=== PATIENT | female | born 1945 | race Caucasian/White ===

== ENCOUNTER → 2016-12-15 | Outpatient (CLI) | payer MEDICARE, MEDICAID ==
[~2016-12-15] MED LIST: IBUP400 PO; METO25 PO; MORP1CAP62 PO; NITR.3 SL; PLAV75TA PO; SPIRCAP INH; ULTR50TA PO; ZANTTAB9 PO
[2016-12-15 08:10] LABS: ANION GAP 5 MEQ/L (5-15); AST (GOT) 10 U/L (15-37); BICARBONATE 28.2 MEQ/L (21.0-32.0); BLOOD UREA NITROGEN 15 MG/DL (7-18); CHLORIDE 108 MEQ/L (98-107); GLOMERULAR FILTRATION RATE 77 ML/MIN (>89); GLUCOSE,FASTING 90 MG/DL (74-99); SODIUM (NA) 141 MEQ/L (136-145)
[2016-12-15 08:11] LABS: ALT (GPT) 18 U/L (10-53)
[2016-12-15 08:13] LABS: ALKALINE PHOSPHATASE 87 U/L (45-117); HDL CHOLESTEROL 52.1 MG/DL (40.0-60.0); LDL CHOLESTEROL 133 MG/DL (0-99); TOTAL BILIRUBIN ADULT 0.4 MG/DL (0.2-1.0)
== END ==
LOC: CLAB 06:55
PROVIDERS: ATTEND Family Medicine
DX: I25.10 Atherosclerotic heart disease of native coronary artery without angina pectoris (principal); E78.5 Hyperlipidemia, unspecified; I11.9 Hypertensive heart disease without heart failure; I73.9 Peripheral vascular disease, unspecified
CPT/HCPCS: 36415; 80053; 80061

== ENCOUNTER 2017-02-08 15:06 | Emergency (ER) | payer MEDICARE, MEDICAID ==
[~2017-02-08] VITALS: Ht 157.5 cm; Wt 63.0 kg
[2017-02-08 16:39] VITALS: BP 117/95; PULSE 74; RESP 16; TEMP 97.5; O2SAT 94
[2017-02-08 17:28] VITALS: BP 177/90; PULSE 63; RESP 16; TEMP 98; O2SAT 97
--- NOTE | 2017-02-09 14:02 | EKG ---
Date Performed: 02/08/2017 Time Performed: 16:49:23 PTAGE: 71 years EKG: Sinus rhythm POSSIBLE LEFT ATRIAL ENLARGEMENT BORDERLINE ECG Compared to prior tracing no significant change PREVIOUS TRACING : 01/07/2015 06.00 DOCTOR: Verónica Burns Interpretating Date/Time 02/09/2017 13:56:58
== END 2017-02-08 20:22 | disposition left against medical advice (07) ==
LOC: PHED 15:06
DX: Z53.9 Procedure and treatment not carried out, unspecified reason (principal)
CPT/HCPCS: 93005; 99281

== ENCOUNTER 2017-02-22 19:49 | Emergency (ER) | payer MEDICARE, MEDICAID ==
[~2017-02-22] VITALS: Ht 157.5 cm; Wt 64.3 kg
[2017-02-22 19:57] VITALS: BP 180/84; PULSE 64; RESP 16; TEMP 97.6; O2SAT 97
[2017-02-22] MEDS ORDERED: PLAV75TA29 PO (20:12)
[2017-02-22] MEDS ORDERED: METO25TA3 PO (20:12)
[2017-02-22] MEDS ORDERED: LIPI80TA PO (20:12)
[2017-02-22] MEDS ORDERED: FOSA70TA PO (20:12)
[2017-02-22] MEDS ORDERED: TRAM50TA PO (20:12)
[2017-02-22] MEDS ORDERED: SPIRCAP INH (20:12)
[2017-02-22] MEDS ORDERED: NITR0.4S SL (20:12)
[2017-02-22] MEDS ORDERED: ZANT150T2 PO (20:12)
[2017-02-22] MEDS ORDERED: SODIUM CHLORIDE 0.9% FLUSH 10 ML FLUSH IV FLUSH PRN (20:15)
[2017-02-22] MEDS ORDERED: diphenhydrAMINE HCL 50 MG/ML VIAL IV PUSH ONE (20:15)
[2017-02-22] MEDS ORDERED: KETOROLAC TROMETHAMINE 30 MG/ML (IVP) VIAL IV PUSH ONE (20:15)
[2017-02-22] MEDS ORDERED: methylPREDNISolone SOD SUCC 125 MG/2 ML VIAL IV PUSH ONE (20:15)
[2017-02-22 20:27] VITALS: O2SAT 97
[2017-02-22 20:43] LABS: AUTOMATED NEUTROPHIL # 4.1 TH/MM3 (1.8-7.7); BASOPHIL # 0.1 TH/MM3 (0-0.2); EOSINOPHIL # 0.2 TH/MM3 (0-0.4); EOSINOPHIL % 2.6 % (0.0-4.0); HEMATOCRIT 47.8 % (35.0-46.0); HEMO FLAGS DIFF FINAL; LYMPH % 39.6 % (9.0-44.0); LYMPHOCYTE # 3.1 TH/MM3 (1.0-4.8); MEAN CELL VOLUME 87.8 FL (80.0-100.0); MONO % 5.6 % (0.0-8.0); NEUT % 51.2 % (16.0-70.0); PLATELET COUNT 256 TH/MM3 (150-450); RED BLOOD COUNT 5.45 MIL/MM3 (4.00-5.30); RED CELL DISTRIBUTION WIDTH 13.5 % (11.6-17.2); WHITE BLOOD COUNT 7.9 TH/MM3 (4.0-11.0)
[2017-02-22 20:51] LABS: CHLORIDE 106 MEQ/L (98-107); POTASSIUM 4.3 MEQ/L (3.5-5.1); SODIUM (NA) 139 MEQ/L (136-145)
[2017-02-22 20:55] LABS: ANION GAP 7 MEQ/L (5-15); BICARBONATE 26.4 MEQ/L (21.0-32.0); BLOOD UREA NITROGEN 13 MG/DL (7-18)
[2017-02-22 20:58] LABS: ALT (GPT) 16 U/L (10-53); AST (GOT) 13 U/L (15-37); GLOMERULAR FILTRATION RATE 89 ML/MIN (>89)
[2017-02-22 21:00] LABS: TOTAL BILIRUBIN ADULT 0.3 MG/DL (0.2-1.0)
[2017-02-22 21:01] LABS: ALKALINE PHOSPHATASE 90 U/L (45-117)
--- NOTE | 2017-02-22 21:01 | PD ---
HPI Chief Complaint: Allergic/Adverse Reaction Time Seen by Provider: 20:06 Travel History International Travel<30 days: No Contact w/Intl Traveler<30days: No Traveled to known affect area: No History of Present Illness HPI 71-year-old female who had the flu vaccine in her left deltoid yesterday afternoon, here for evaluation of pain, redness, and warmth to her left arm. Symptoms started yesterday night and continued throughout the day today. Pain is severe, constant, worse with movement and palpation. No tongue or lip swelling. No drooling or stridor. PFSH Past Medical History Hx Anticoagulant Therapy: Yes (PLAVIX) Arthritis: Yes (OSTEOPOROSIS) Asthma: Yes Autoimmune Disease: No Blood Disorders: No Anxiety: No Depression: No Heart Rhythm Problems: Yes Cancer: No Cardiac Catheterization: Yes Cardiovascular Problems: Yes High Cholesterol: Yes Chemotherapy: No Chest Pain: Yes Congestive Heart Failure: No COPD: Yes Cerebrovascular Accident: No Coronary Artery Disease: Yes ([place]) Diabetes: No Diminished Hearing: No Diverticulitis: Yes Endocrine: No Gastrointestinal Disorders: Yes GERD: Yes (HIATAL HERNIA) Genitourinary: No Headaches: Yes Hepatitis: No Hiatal Hernia: Yes Hypertension: Yes Immune Disorder: No Implanted Vascular Access Dvce: Yes Musculoskeletal: No Neurologic: Yes Psychiatric: No Reproductive: No Respiratory: Yes (EMPHYSEMA) Immunizations Current: No Migraines: Yes Myocardial Infarction: Yes (2004) Radiation Therapy: No Seizures: No Sleep Apnea: No Thyroid Disease: No Ulcer: Yes Tetanus Vaccination: < 5 Years Influenza Vaccination: Yes PNEUMOCCOCAL Vaccine (Year): 2 Menopausal: Yes Past Surgical History Abdominal Surgery: Yes AICD: No Appendectomy: No Arteriovenous Shunt: No Body Medical Devices: CARDIAC AND FEMORAL STENTS Cardiac Surgery: Yes (STENT 2004) Cholecystectomy: No Coronary Artery Bypass Graft: Yes Coronary Stent: Yes Ear Surgery: No Endocrine Surgery: No Eye Surgery: No Genitourinary Surgery: No Gynecologic Surgery: Yes Hysterectomy: Yes Insulin Pump: No Joint Replacement: No Neurologic Surgery: No Oral Surgery: Yes Pacemaker: No Thoracic Surgery: No Tonsillectomy: Yes Other Surgery: Yes (BILAT ILIAC PTCA/STENTS) Family History Family Myocardial Infarction: Yes Social History Alcohol Use: No Tobacco Use: Yes (<1/2 PPD) Substance Use: No Allergies-Medications (Allergen,Severity, Reaction): Coded Allergies: Sulfa (Sulfonamide Antibiotics) (Unverified Allergy, Severe, UNKNOWN; "ALMOST ", 02/22/17) A CHILD; PT STATE HER MOTHER TOLD HER SHE ALMOST AFTER RECEIVING SULFA DRUG acetaminophen (Unverified Adverse Reaction, Severe, Nausea/Vomiting, ) codeine (Unverified Adverse Reaction, Severe, Nausea/Vomiting, 02/22/17) oxycodone (Unverified Adverse Reaction, Severe, Nausea/Vomiting, 02/22/17) aspirin (Unverified Adverse Reaction, Intermediate, Ulcers, 02/22/17) GI BLEED Reported Meds & Prescriptions Reported Meds & Active Scripts Active Reported Tramadol (Tramadol HCl) 50 Mg Tab 50 Mg PO Q8H PRN Lipitor (Atorvastatin Calcium) 80 Mg Tab 80 Mg PO HS Zantac (Ranitidine HCl) 150 Mg Tab 150 Mg PO BID Spiriva Handihaler (Tiotropium Inh) 18 Mcg Cap 18 Mcg INH DAILY 1 capsule = 18 mcg Plavix (Clopidogrel Bisulfate) 75 Mg Tab 75 Mg PO DAILY Nitrostat SL (Nitroglycerin) 0.4 Mg Subl 0.4 Mg SL DIRECTED PRN 1 tablet under the tongue as needed for chest pain. Repeat every 5 minutes for a total of 3 DOSES or call 911 if NO relief. Metoprolol Tartrate 25 Mg Tab 25 Mg PO BID Review of Systems Except as stated in HPI: all other systems reviewed are Neg Physical Exam Narrative GENERAL: Well-developed, thin, comfortable, no apparent distress. SKIN: Focused skin assessment warm/dry. Left proximal arm with mild warmth and erythema with slightly raised skin/hive-like lesions. No red streaks. No fluctuance or induration. No crepitus. HEAD: Atraumatic. Normocephalic. EYES: Pupils equal and round. No scleral icterus. No injection or drainage. ENT: Mucous membranes pink and moist. No tongue or lip swelling. No drooling or stridor. NECK: Trachea midline. No JVD. No nuchal rigidity. CARDIOVASCULAR: Regular rate and rhythm. Bilateral distal radial pulses are brisk and equal. RESPIRATORY: No accessory muscle use. Clear to auscultation. Breath sounds equal bilaterally. GASTROINTESTINAL: Abdomen soft, non-tender, nondistended. MUSCULOSKELETAL: No obvious deformities. No clubbing. No cyanosis. No edema. NEUROLOGICAL: Awake and alert. No obvious cranial nerve deficits. Motor grossly within normal limits. Normal speech. PSYCHIATRIC: Appropriate mood and affect; insight and judgment normal. Data Data Last Documented VS Vital Signs Date Time Temp Pulse Resp B/P (MAP) Pulse Ox O2 Delivery O2 Flow Rate FiO2 02/22/17 20:27 97 Room Air 02/22/17 19:57 97.6 64 16 Orders Orders Complete Blood Count With Diff (02/22/17 20:10) Comprehensive Metabolic Panel (02/22/17 20:10) Iv Access Insert/Monitor (02/22/17 20:10) Ecg Monitoring (02/22/17 20:10) Oximetry (02/22/17 20:10) Sodium Chloride 0.9% Flush (Ns Flush) (02/22/17 20:15) Methylprednisolone So Succ Inj (Solumedr (02/22/17 20:15) Ketorolac Inj (Toradol Inj) (02/22/17 20:15) Diphenhydramine Inj (Benadryl Inj) (02/22/17 20:15) Labs Laboratory Tests Test 02/22/17 20:40 White Blood Count 7.9 TH/MM3 Red Blood Count 5.45 MIL/MM3 Hemoglobin 15.8 GM/DL Hematocrit 47.8 % Mean Corpuscular Volume 87.8 FL Mean Corpuscular Hemoglobin 29.0 PG Mean Corpuscular Hemoglobin Concent 33.0 % Red Cell Distribution Width 13.5 % Platelet Count 256 TH/MM3 Mean Platelet Volume 8.9 FL Neutrophils (%) (Auto) 51.2 % Lymphocytes (%) (Auto) 39.6 % Monocytes (%) (Auto) 5.6 % Eosinophils (%) (Auto) 2.6 % Basophils (%) (Auto) 1.0 % Neutrophils # (Auto) 4.1 TH/MM3 Lymphocytes # (Auto) 3.1 TH/MM3 Monocytes # (Auto) 0.4 TH/MM3 Eosinophils # (Auto) 0.2 TH/MM3 Basophils # (Auto) 0.1 TH/MM3 CBC Comment DIFF FINAL Differential Comment Blood Urea Nitrogen 13 MG/DL Creatinine 0.66 MG/DL Random Glucose 90 MG/DL Total Protein 7.2 GM/DL Albumin 3.5 GM/DL Calcium Level 9.3 MG/DL Alkaline Phosphatase 90 U/L Aspartate Amino Transf (AST/SGOT) 13 U/L Alanine Aminotransferase (ALT/SGPT) 16 U/L Total Bilirubin 0.3 MG/DL Sodium Level 139 MEQ/L Potassium Level 4.3 MEQ/L Chloride Level 106 MEQ/L Carbon Dioxide Level 26.4 MEQ/L Anion Gap 7 MEQ/L Estimat Glomerular Filtration Rate 89 ML/MIN MDM Medical Decision Making Medical Screen Exam Complete: Yes Emergency Medical Condition: Yes Medical Record Reviewed: Yes Differential Diagnosis Adverse medication reaction, allergic reaction, cellulitis Narrative Course Vital signs show heart rate 64, blood pressure 180/84, pulse ox 97% on room air , oral temp 97.6F. CBC shows WBC 7.9, hemoglobin 15.8, hematocrit 47.8, platelets 256. CMP is unremarkable. Patient was given a dose of IV Solu-Medrol, IV Benadryl, and IV Toradol, and on reassessment she is feeling significantly improved. The area of warmth and erythema to her left arm has significantly improved. I think this is an adverse reaction to the influenza vaccine. I do not believe that there is an infection such as cellulitis or an abscess. There is no fluctuance or induration. She does not have any signs or symptoms of an anaphylactic reaction. She is feeling much better and would like to be discharged home. I believe she is stable for discharge home with outpatient follow-up with her primary care physician this week. I'll give her a short course of prednisone to take once daily for the next 4 days. She was informed on when to return to the emergency department. She verbalizes understanding and agreement with plan. Diagnosis Primary Impression: Adverse reaction to influenza vaccine Qualified Codes: [id number] - Adverse effect of other viral vaccines, initial encounter Referrals: Primary Care Physician 3 days Additional Instructions: Follow-up with your primary care physician this week. Return to the emergency department for worsening symptoms or any other concerns. Scripts Prednisone (Prednisone) 50 Mg Tab 50 MG PO DAILY for 4 Days, #4 TAB 0 Refills Prov: Sumit Sen MD 02/22/17 Disposition: 01 DISCHARGE HOME Condition: Stable Sumit Sen MD Feb 22, 2017 21:01
[2017-02-22] MEDS ORDERED: PRED50 PO (21:22)
[2017-02-22 21:38] VITALS: BP 150/80
== END 2017-02-22 21:46 | disposition home or self-care (01) ==
LOC: PHED 19:49
DX: T50.B95A Adverse effect of other viral vaccines, initial encounter (principal); M81.0 Age-related osteoporosis without current pathological fracture; E78.00 Pure hypercholesterolemia, unspecified; J44.9 Chronic obstructive pulmonary disease, unspecified; I25.2 Old myocardial infarction; I25.10 Atherosclerotic heart disease of native coronary artery without angina pectoris; I10 Essential (primary) hypertension; Z95.5 Presence of coronary angioplasty implant and graft; Z95.1 Presence of aortocoronary bypass graft; F17.210 Nicotine dependence, cigarettes, uncomplicated
CPT/HCPCS: 80053; 85025; 96374; 96375; 99284; J1200; J1885; J2930

== ENCOUNTER → 2017-03-19 | Outpatient (CLI) | payer MEDICARE, MEDICAID ==
[~2017-03-19] MED LIST changes: -IBUP400 PO; +LIPI80TA PO; -METO25 PO; +METO25TA3 PO; -MORP1CAP62 PO; -NITR.3 SL; +NITR0.4S SL; -PLAV75TA PO; +PLAV75TA29 PO; +PRED50 PO; +TRAM50TA PO; -ULTR50TA PO; +ZANT150T2 PO; -ZANTTAB9 PO
[2017-03-19 06:54] LABS: AUTOMATED NEUTROPHIL # 3.3 TH/MM3 (1.8-7.7); BASOPHIL # 0.1 TH/MM3 (0-0.2); BASOPHIL % 1.2 % (0.0-2.0); EOSINOPHIL # 0.2 TH/MM3 (0-0.4); EOSINOPHIL % 2.2 % (0.0-4.0); HEMATOCRIT 46.3 % (35.0-46.0); HEMO FLAGS DIFF FINAL; LYMPH % 49.1 % (9.0-44.0); MEAN CELL VOLUME 88.3 FL (80.0-100.0); MEAN CORPUSCULAR HEMOGLOBIN 29.9 PG (27.0-34.0); MEAN CORPUSCULAR HGB CONC 33.8 % (32.0-36.0); MONO % 6.8 % (0.0-8.0); NEUT % 40.7 % (16.0-70.0); PLATELET COUNT 234 TH/MM3 (150-450); RED BLOOD COUNT 5.25 MIL/MM3 (4.00-5.30); WHITE BLOOD COUNT 8.2 TH/MM3 (4.0-11.0)
[2017-03-19 07:37] LABS: ANION GAP 5 MEQ/L (5-15); AST (GOT) 9 U/L (15-37); BICARBONATE 28.8 MEQ/L (21.0-32.0); BLOOD UREA NITROGEN 12 MG/DL (7-18); CHLORIDE 106 MEQ/L (98-107); GLOMERULAR FILTRATION RATE 77 ML/MIN (>89); GLUCOSE,FASTING 87 MG/DL (74-99); POTASSIUM 4.3 MEQ/L (3.5-5.1); SODIUM (NA) 140 MEQ/L (136-145)
[2017-03-19 07:38] LABS: ALT (GPT) 16 U/L (10-53)
[2017-03-19 07:41] LABS: ALKALINE PHOSPHATASE 86 U/L (45-117); HDL CHOLESTEROL 53.5 MG/DL (40.0-60.0); LDL CHOLESTEROL 159 MG/DL (0-99); TOTAL BILIRUBIN ADULT 0.3 MG/DL (0.2-1.0)
== END ==
LOC: CLAB 06:33
PROVIDERS: ATTEND Family Medicine
DX: J44.9 Chronic obstructive pulmonary disease, unspecified (principal); I25.10 Atherosclerotic heart disease of native coronary artery without angina pectoris; E78.5 Hyperlipidemia, unspecified; I11.9 Hypertensive heart disease without heart failure; I25.2 Old myocardial infarction; I73.9 Peripheral vascular disease, unspecified; Z11.59 Encounter for screening for other viral diseases; Z79.01 Long term (current) use of anticoagulants
CPT/HCPCS: 36415; 80053; 80061; 85025; 86803

== ENCOUNTER 2017-05-11 18:26 | Inpatient (IN) | payer MEDICARE, MEDICAID ==
[~2017-05-11] VITALS: Ht 160 cm; Wt 63.5 kg
[2017-05-11] MEDS ORDERED: SODIUM CHLORIDE 0.9% FLUSH 10 ML FLUSH IVF PRN (18:45)
[2017-05-11] MEDS ORDERED: NITROGLYCERIN 2% OINT 1 GM PACKET TOP ONE (18:45)
[2017-05-11] MEDS ORDERED: SODIUM CHLORID 0.9% 500 ML INJ 500 ML IV ONE (18:45)
[2017-05-11] MEDS ORDERED: CLOPIDOGREL 300 MG TAB PO ONE (18:45)
[2017-05-11] MEDS ORDERED: MORPHINE SULFATE 4 MG/ML INJ IV PUSH ONE (18:45)
[2017-05-11 18:48] VITALS: BP 129/82; PULSE 92; RESP 18; O2SAT 94; O2SAT 98
--- NOTE | 2017-05-11 18:50 | PD ---
HPI Chief Complaint: chest pain Time Seen by Provider: 18:43 Travel History International Travel<30 days: No Contact w/Intl Traveler<30days: No Traveled to known affect area: No History of Present Illness HPI 71-year-old female with history of cardiac issues presents the emergency department via EMS with sudden onset chest pain approximately 2 hours ago. Patient received a total of 3 nitroglycerin en route with mild improvement in her symptoms. Patient is allergic to aspirin., As well as sulfa , codeine, and oxycodone. Patient denies recent fever or chills. Chest pain came on suddenly without exertion. Pain is stated to be 7 out of 10. Patient has cardiac history including 2 stents placed in 2009. Patient also has peripheral vascular disease with femoropopliteal bypass done in 2007. Patient states the pain today radiates down the left arm. She also has associated chest pressure. Patient denies nausea or vomiting. PFSH Past Medical History Hx Anticoagulant Therapy: Yes (PLAVIX) Arthritis: Yes (OSTEOPOROSIS) Asthma: Yes Autoimmune Disease: No Blood Disorders: No Anxiety: No Depression: No Heart Rhythm Problems: Yes Cancer: No Cardiac Catheterization: Yes Cardiovascular Problems: Yes High Cholesterol: Yes Chemotherapy: No Chest Pain: Yes Congestive Heart Failure: No COPD: Yes Cerebrovascular Accident: No Coronary Artery Disease: Yes ([place]) Diabetes: No Diminished Hearing: No Diverticulitis: Yes Endocrine: No Gastrointestinal Disorders: Yes GERD: Yes (HIATAL HERNIA) Genitourinary: No Headaches: Yes Hepatitis: No Hiatal Hernia: Yes Hypertension: Yes Immune Disorder: No Implanted Vascular Access Dvce: Yes Musculoskeletal: No Neurologic: Yes Psychiatric: No Reproductive: No Respiratory: Yes (EMPHYSEMA) Immunizations Current: No Migraines: Yes Myocardial Infarction: Yes (2004) Radiation Therapy: No Seizures: No Sleep Apnea: No Thyroid Disease: No Ulcer: Yes PNEUMOCCOCAL Vaccine (Year): 2 Menopausal: Yes Past Surgical History Abdominal Surgery: Yes AICD: No Appendectomy: No Arteriovenous Shunt: No Body Medical Devices: CARDIAC AND FEMORAL STENTS Cardiac Surgery: Yes (STENT 2004) Cholecystectomy: No Coronary Artery Bypass Graft: Yes Coronary Stent: Yes Ear Surgery: No Endocrine Surgery: No Eye Surgery: No Genitourinary Surgery: No Gynecologic Surgery: Yes Hysterectomy: Yes Insulin Pump: No Joint Replacement: No Neurologic Surgery: No Oral Surgery: Yes Pacemaker: No Thoracic Surgery: No Tonsillectomy: Yes Other Surgery: Yes (BILAT ILIAC PTCA/STENTS) Social History Alcohol Use: No Tobacco Use: Yes (<1/2 PPD) Substance Use: No Allergies-Medications (Allergen,Severity, Reaction): Coded Allergies: Sulfa (Sulfonamide Antibiotics) (Unverified Allergy, Severe, UNKNOWN; "ALMOST ", 05/11/17) A CHILD; PT STATE HER MOTHER TOLD HER SHE ALMOST AFTER RECEIVING SULFA DRUG acetaminophen (Unverified Adverse Reaction, Severe, Nausea/Vomiting, 05/11) codeine (Unverified Adverse Reaction, Severe, Nausea/Vomiting, 05/11/17) oxycodone (Unverified Adverse Reaction, Severe, Nausea/Vomiting, 05/11/17) aspirin (Unverified Adverse Reaction, Intermediate, Ulcers, 05/11/17) GI BLEED Reported Meds & Prescriptions Reported Meds & Active Scripts Active Reported Tramadol (Tramadol HCl) 50 Mg Tab 50 Mg PO Q8H PRN Lipitor (Atorvastatin Calcium) 80 Mg Tab 80 Mg PO HS Zantac (Ranitidine HCl) 150 Mg Tab 150 Mg PO BID Spiriva Handihaler (Tiotropium Inh) 18 Mcg Cap 18 Mcg INH DAILY 1 capsule = 18 mcg Plavix (Clopidogrel Bisulfate) 75 Mg Tab 75 Mg PO DAILY Nitrostat SL (Nitroglycerin) 0.4 Mg Subl 0.4 Mg SL DIRECTED PRN 1 tablet under the tongue as needed for chest pain. Repeat every 5 minutes for a total of 3 DOSES or call 911 if NO relief. Metoprolol Tartrate 25 Mg Tab 25 Mg PO BID Review of Systems Except as stated in HPI: all other systems reviewed are Neg General / Constitutional: No: Fever Eyes: No: Visual changes HENT: No: Headaches Cardiovascular: Positive: Chest Pain or Discomfort, Claudication, No: Palpitations, Irregular Rhythm, Tachycardia, Diaphoresis, Syncope, Dyspnea on exertion, Varicosities, Edema, Cyanosis, Varicosities, Phlebitis Respiratory: Positive: Shortness of Breath, No: Cough Gastrointestinal: No: Nausea, Vomiting, Diarrhea, Abdominal Pain Genitourinary: No: Dysuria Musculoskeletal: No: Pain Skin: No Rash Neurologic: No: Weakness Psychiatric: No: Depression Endocrine: No: Polydipsia Hematologic/Lymphatic: No: Easy Bruising Physical Exam Narrative GENERAL: Patient appears mildly anxious and in mild to moderate distress. SKIN: Warm and dry. Normal color. Normal turgor. HEAD: Atraumatic. Normocephalic. EYES: Pupils equal and round. No scleral icterus. No injection or drainage. ENT: No nasal bleeding or discharge. Mucous membranes pink and moist. Pharynx is clear. Airway is patent NECK: Trachea midline. No JVD. Supple and nontender. CARDIOVASCULAR: Regular rate and rhythm. No murmurs gallops or rubs. RESPIRATORY: No accessory muscle use. Clear to auscultation. No crackles appreciated Breath sounds equal bilaterally. GASTROINTESTINAL: Abdomen soft, non-tender, nondistended. Hepatic and splenic margins not palpable. MUSCULOSKELETAL: Extremities without clubbing, cyanosis, or edema. No obvious deformities. NEUROLOGICAL: Awake and alert. No obvious cranial nerve deficits. Motor grossly within normal limits. Five out of 5 muscle strength in the arms and legs. Normal speech. PSYCHIATRIC: Appropriate mood and affect; insight and judgment normal. Data Data Last Documented VS Vital Signs Date Time Temp Pulse Resp B/P (MAP) Pulse Ox O2 Delivery O2 Flow Rate FiO2 05/11/17 19:16 78 18 129/82 (98) 96 Room Air 05/11/17 18:48 2.00 Orders Orders Electrocardiogram (05/11/17 18:43) Ckmb (Isoenzyme) Profile (05/11/17 18:43) Complete Blood Count With Diff (05/11/17 18:43) Comprehensive Metabolic Panel (05/11/17 18:43) Magnesium (Mg) (05/11/17 18:43) Prothrombin Time / Inr (Pt) (05/11/17 18:43) Act Partial Throm Time (Ptt) (05/11/17 18:43) Troponin I (05/11/17 18:43) Chest, Single Ap (05/11/17 18:43) Ecg Monitoring (05/11/17 18:43) Bilateral Bp Monitoring (05/11/17 18:43) Iv Access Insert/Monitor (05/11/17 18:43) Oximetry (05/11/17 18:43) Oxygen Administration (05/11/17 18:43) Clopidogrel (Plavix) (05/11/17 18:45) Morphine Inj (Morphine Inj) (05/11/17 18:45) Nitroglycerin 2% Oint (Nitroglycerin 2% (05/11/17 18:45) Sodium Chloride 0.9% Flush (Ns Flush) (05/11/17 18:45) Sodium Chlorid 0.9% 500 Ml Inj (Ns 500 M (05/11/17 18:45) Magnesium Sulfate 1 Gm Premix (Magnesium (05/11/17 21:15) Calcium Gluconate Inj (Calcium Gluconate (05/11/17 21:15) Potassium Chlor 20 Meq Premix (Kcl 20 Me (05/11/17 21:15) Calcium Carbonate Chew (Tums Chew) (05/11/17 21:15) Heparin-D5w 25,000 U/250 Ml (Heparin-D5w (05/11/17 21:15) Act Partial Throm Time (Ptt) (05/11/17 21:03) Cbc No Diff, Includes Plts (05/11/17 21:03) Cbc No Diff, Includes Plts (05/14/17 06:00) Act Partial Throm Time (Ptt) (05/12/17 04:03) Occult Blood (Hemoccult) Stool (05/11/17 21:03) Admit Order (Ed Use Only) (05/11/17 21:09) Labs Laboratory Tests Test 05/11/17 19:15 White Blood Count 8.3 TH/MM3 Red Blood Count 5.16 MIL/MM3 Hemoglobin 15.4 GM/DL Hematocrit 45.9 % Mean Corpuscular Volume 89.0 FL Mean Corpuscular Hemoglobin 29.8 PG Mean Corpuscular Hemoglobin Concent 33.5 % Red Cell Distribution Width 14.3 % Platelet Count 244 TH/MM3 Mean Platelet Volume 9.1 FL Neutrophils (%) (Auto) 55.5 % Lymphocytes (%) (Auto) 35.7 % Monocytes (%) (Auto) 6.5 % Eosinophils (%) (Auto) 1.4 % Basophils (%) (Auto) 0.9 % Neutrophils # (Auto) 4.6 TH/MM3 Lymphocytes # (Auto) 3.0 TH/MM3 Monocytes # (Auto) 0.5 TH/MM3 Eosinophils # (Auto) 0.1 TH/MM3 Basophils # (Auto) 0.1 TH/MM3 CBC Comment DIFF FINAL Differential Comment Prothrombin Time 9.8 SEC Prothromb Time International Ratio 1.0 RATIO Activated Partial Thromboplast Time 25.7 SEC Blood Urea Nitrogen 12 MG/DL Creatinine 0.45 MG/DL Random Glucose 68 MG/DL Total Protein 5.1 GM/DL Albumin 2.4 GM/DL Calcium Level 6.2 MG/DL Magnesium Level 1.5 MG/DL Alkaline Phosphatase 67 U/L Aspartate Amino Transf (AST/SGOT) 11 U/L Alanine Aminotransferase (ALT/SGPT) 14 U/L Total Bilirubin 0.1 MG/DL Sodium Level 147 MEQ/L Potassium Level 3.1 MEQ/L Chloride Level 116 MEQ/L Carbon Dioxide Level 23.5 MEQ/L Anion Gap 8 MEQ/L Estimat Glomerular Filtration Rate 138 ML/MIN Protein Corrected Calcium 7.1 MG/DL Total Creatine Kinase 37 U/L Troponin I 0.19 NG/ML MDM Medical Decision Making Medical Screen Exam Complete: Yes Emergency Medical Condition: Yes Medical Record Reviewed: Yes Differential Diagnosis Substernal chest pain radiating left arm. Cardiac syndrome. Non-STEMI. Narrative Course Patient appears medically stable at time of exam. EKG shows normal sinus rhythm without specific ST changes. EKG was reviewed by Dr. Quijano and felt not to be a STEMI. Cardiac labs were ordered per protocol. Patient is given 4 mg morphine IV as well as 4 mg Zofran IV as well as 300 mg Plavix by mouth, and 1 inch of nitroglycerin paste. Chest x-ray is ordered. Chest x-ray shows no acute process per radiologist. 2000 hours, patient is reassessed and found to be improved with pain down to a 6 /10 when patient arrived it was 9 out of 10. Labs are still pending. CBC is unremarkable. Coagulation studies are unremarkable. CMP is remarkably abnormal with a sodium of 147, potassium is 3.1, chloride of 116, BUN is 12, creatinine is 0.45, random glucose is 68. Calcium is 6.2 with protein corrected 7.1. Troponin is elevated 0.19. Total protein is 5.1, albumin is 2.4. Patient discussed with Dr. France who recommends 1 g IV magnesium, 20 mEq potassium IV 2. 500 mg calcium carbonate by mouth. One gram calcium gluconate IV, and IV heparin. Call placed to the hospitalist the patient is discussed with Dr. Aguilar, who accepts the patient for admission. Diagnosis Primary Impression: Chest pain Qualified Codes: I20.9 - Angina pectoris, unspecified Additional Impressions: Elevated troponin I level Hypernatremia Hypokalemia Hypocalcemia Admitting Information Admitting Physician Requests: Admit Condition: Stable Heber Purvis May 11, 2017 18:50
[2017-05-11 19:16] VITALS: BP 129/82; PULSE 78; RESP 18; O2SAT 96
--- NOTE | 2017-05-11 19:33 | RADRPT ---
EXAM DATE/TIME: 05/11/2017 18:57 [facility] COMPARISON: No previous studies available for comparison. INDICATIONS : Chest pain. MEDICAL HISTORY : Hypertension. Chronic obstructive pulmonary disease. SURGICAL HISTORY : Cardiac stents. ENCOUNTER: Initial ACUITY: 1 day PAIN SCORE: 5/10 LOCATION: Bilateral chest FINDINGS: A single view of the chest demonstrates the lungs to be symmetrically aerated without evidence of mas s, infiltrate or effusion. The cardiomediastinal contours are unremarkable. Osseous structures are intact. CONCLUSION: 1. No active disease. No effusion or pneumothorax. Desean Monahan MD on May 11, 2017 at 19:31 Board Certified Radiologist. This report was verified electronically.
[2017-05-11 20:18] LABS: AUTOMATED NEUTROPHIL # 4.6 TH/MM3 (1.8-7.7); BASOPHIL # 0.1 TH/MM3 (0-0.2); BASOPHIL % 0.9 % (0.0-2.0); EOSINOPHIL # 0.1 TH/MM3 (0-0.4); EOSINOPHIL % 1.4 % (0.0-4.0); HEMATOCRIT 45.9 % (35.0-46.0); HEMO FLAGS DIFF FINAL; LYMPH % 35.7 % (9.0-44.0); MEAN CORPUSCULAR HEMOGLOBIN 29.8 PG (27.0-34.0); MEAN CORPUSCULAR HGB CONC 33.5 % (32.0-36.0); MONO % 6.5 % (0.0-8.0); NEUT % 55.5 % (16.0-70.0); PLATELET COUNT 244 TH/MM3 (150-450); RED BLOOD COUNT 5.16 MIL/MM3 (4.00-5.30); RED CELL DISTRIBUTION WIDTH 14.3 % (11.6-17.2); WHITE BLOOD COUNT 8.3 TH/MM3 (4.0-11.0)
[2017-05-11 20:31] LABS: APTT (PATIENT) 25.7 SEC (24.3-30.1); PROTHROMBIN TIME - PATIENT 9.8 SEC (9.8-11.6)
[2017-05-11 20:43] LABS: BICARBONATE 23.5 MEQ/L (21.0-32.0); MAGNESIUM 1.5 MG/DL (1.5-2.5); POTASSIUM 3.1 MEQ/L (3.5-5.1); TOTAL BILIRUBIN ADULT 0.1 MG/DL (0.2-1.0)
[2017-05-11 20:52] LABS: CALCIUM-PROTEIN CORRECTED 7.1 MG/DL (8.5-10.1)
[2017-05-11] MEDS ORDERED: MAGNESIUM SULFATE 1 GM PREMIX 100 ML IV ONE (21:15)
[2017-05-11] MEDS ORDERED: POTASSIUM CHLOR 20 MEQ PREMIX 100 ML IV SCH (21:15)
[2017-05-11] MEDS ORDERED: CALCIUM CARBONATE 500 MG CHEWABLE TAB CHEW ONE (21:15)
[2017-05-11] MEDS ORDERED: CALCIUM GLUCONATE INJ 1 GM in DEXTROSE 5% IN WATER 100ML INJ 100 ML IV ONE ×2 (21:15)
[2017-05-11] MEDS ORDERED: RESP: ALBUTEROL 2.5 MG/IPRATROPIUM 0.5 MG NEB (PRN) NEB ×2 (21:30→23:15)
[2017-05-11] MEDS ORDERED: MORPHINE SULFATE 4 MG/ML INJ IV PUSH PRN (21:30)
[2017-05-11] MEDS ORDERED: NITROGLYCERIN 0.4 MG SL 25 TABS/BTL SL PRN (21:30)
[2017-05-11] MEDS ORDERED: SODIUM CHLORIDE 0.9% FLUSH 10 ML FLUSH IV FLUSH PRN (21:30)
[2017-05-11 22:00] VITALS: BP 147/74; PULSE 95; RESP 18; O2SAT 97
[2017-05-11] MEDS: ATORVASTATIN 80 MG TAB PO SCH (22:08)
[2017-05-11] MEDS: HEPARIN-D5W 25,000 U/250 ML 250 ML IV PRN (22:08)
[2017-05-11] MEDS: METOPROLOL TARTRATE 25 MG TAB PO SCH (22:43)
[2017-05-11] MEDS: FAMOTIDINE 20 MG TAB PO SCH (22:49)
--- NOTE | 2017-05-11 23:23 | HHI.HP ---
[facility] Primary Care Physician Jhon Joseph MD Admission Diagnosis Chest Pain/Elevated Troponin/Hypokalemia/Hypocalcemia Diagnoses: Travel History International Travel<30 Days: No Contact w/Intl Traveler <30 Da: No Traveled to Known Affected Are: No History of Present Illness 71-year-old female with a past medical history significant for COPD, CAD status post DE in 2004 and hiatal hernia presents to the emergency department with left -sided chest pain/pressure that radiates down her left arm. She has associated shortness of breath without diaphoresis. The patient reports she was arguing with her neighbor when she had sudden onset of chest pain. Denies nausea/ vomiting. Troponin 0.19. EKG shows normal sinus rhythm without ST segment elevation or depression. Review of Systems Denies fever or chills Denies blurry vision, otorrhea, rhinorrhea Denies sore throat and cough Positive chest pain, shortness of breath No abdominal pain Denies constipation/diarrhea/nausea/vomiting Denies muscle pain/weakness No rashes Past Family Social History Past Medical History COPD CAD status post DE in 2004 with stent placement 2 Hiatal hernia Past Surgical History Cardiac catheterization in 2004 with stent placement 2 Bilateral iliac stent placement Exploratory laparotomy for unknown reason Hysterectomy Tonsillectomy Reported Medications Reported Meds & Active Scripts Active Reported Tramadol (Tramadol HCl) 50 Mg Tab 50 Mg PO Q8H PRN Lipitor (Atorvastatin Calcium) 80 Mg Tab 80 Mg PO HS Zantac (Ranitidine HCl) 150 Mg Tab 150 Mg PO BID Spiriva Handihaler (Tiotropium Inh) 18 Mcg Cap 18 Mcg INH DAILY 1 capsule = 18 mcg Plavix (Clopidogrel Bisulfate) 75 Mg Tab 75 Mg PO DAILY Nitrostat SL (Nitroglycerin) 0.4 Mg Subl 0.4 Mg SL DIRECTED PRN 1 tablet under the tongue as needed for chest pain. Repeat every 5 minutes for a total of 3 DOSES or call 911 if NO relief. Metoprolol Tartrate 25 Mg Tab 25 Mg PO BID Allergies: Coded Allergies: Sulfa (Sulfonamide Antibiotics) (Unverified Allergy, Severe, UNKNOWN; "ALMOST ", 05/11/17) A CHILD; PT STATE HER MOTHER TOLD HER SHE ALMOST AFTER RECEIVING SULFA DRUG acetaminophen (Unverified Adverse Reaction, Severe, Nausea/Vomiting, 05/11) codeine (Unverified Adverse Reaction, Severe, Nausea/Vomiting, 05/11/17) oxycodone (Unverified Adverse Reaction, Severe, Nausea/Vomiting, 05/11/17) aspirin (Unverified Adverse Reaction, Intermediate, Ulcers, 05/11/17) GI BLEED Family History Both parents with CAD Social History Smokes 2 packs per day 51 years. Has cut back to half a pack per day currently. Denies alcohol or illicit drugs. Physical Exam Vital Signs Vital Signs Date Time Temp Pulse Resp B/P (MAP) Pulse Ox O2 Delivery O2 Flow Rate FiO2 05/11/17 19:16 78 18 129/82 (98) 96 Room Air 05/11/17 19:16 18 05/11/17 18:48 92 18 129/82 (98) 94 Room Air 05/11/17 18:48 94 Room Air 2.00 Physical Exam GENERAL: female sitting up in bed SKIN: No rashes, ecchymoses or lesions. Cool and dry. HEAD: Atraumatic. Normocephalic. No temporal or scalp tenderness. EYES: Pupils equal round and reactive. Extraocular motions intact. No scleral icterus. No injection or drainage. ENT: Nose without bleeding, purulent drainage or septal hematoma. Throat without erythema, tonsillar hypertrophy or exudate. Uvula midline. Airway patent. NECK: Trachea midline. No JVD or lymphadenopathy. Supple, nontender, no meningeal signs. CARDIOVASCULAR: Regular rate and rhythm without murmurs, gallops, or rubs. RESPIRATORY: Clear to auscultation. Breath sounds equal bilaterally. No wheezes , rales, or rhonchi. GASTROINTESTINAL: Abdomen soft, non-tender, nondistended. No hepato-splenomegaly , or palpable masses. No guarding. MUSCULOSKELETAL: Extremities without clubbing, cyanosis, or edema. No joint tenderness, effusion, or edema noted. No calf tenderness. NEUROLOGICAL: Awake and alert. Cranial nerves II through XII intact. Motor and sensory grossly within normal limits. Normal speech. Laboratory Laboratory Tests Test 05/11/17 19:15 White Blood Count 8.3 Red Blood Count 5.16 Hemoglobin 15.4 Hematocrit 45.9 Mean Corpuscular Volume 89.0 Mean Corpuscular Hemoglobin 29.8 Mean Corpuscular Hemoglobin Concent 33.5 Red Cell Distribution Width 14.3 Platelet Count 244 Mean Platelet Volume 9.1 Neutrophils (%) (Auto) 55.5 Lymphocytes (%) (Auto) 35.7 Monocytes (%) (Auto) 6.5 Eosinophils (%) (Auto) 1.4 Basophils (%) (Auto) 0.9 Neutrophils # (Auto) 4.6 Lymphocytes # (Auto) 3.0 Monocytes # (Auto) 0.5 Eosinophils # (Auto) 0.1 Basophils # (Auto) 0.1 CBC Comment DIFF FINAL Differential Comment Prothrombin Time 9.8 Prothromb Time International Ratio 1.0 Activated Partial Thromboplast Time 25.7 Blood Urea Nitrogen 12 Creatinine 0.45 Random Glucose 68 Total Protein 5.1 Albumin 2.4 Calcium Level 6.2 Magnesium Level 1.5 Alkaline Phosphatase 67 Aspartate Amino Transf (AST/SGOT) 11 Alanine Aminotransferase (ALT/SGPT) 14 Total Bilirubin 0.1 Sodium Level 147 Potassium Level 3.1 Chloride Level 116 Carbon Dioxide Level 23.5 Anion Gap 8 Estimat Glomerular Filtration Rate 138 Protein Corrected Calcium 7.1 Total Creatine Kinase 37 Troponin I 0.19 Result Diagram: 05/11/17191405/11/171914 Caprini VTE Risk Assessment Caprini VTE Risk Assessment: Mod/High Risk (score >= 2) Caprini Risk Assessment Model Point Value = 1 Point Value = 2 Point Value = 3 Point Value = 5 Age 41-60 Minor surgery BMI > 25 kg/m2 Swollen legs Varicose veins or History of unexplained or recurrent spontaneous Oral contraceptives or hormone replacement Sepsis (< 1 month) Serious lung disease, including pneumonia (< 1 month) Abnormal pulmonary function Acute myocardial infarction Congestive heart failure (< 1 month) History of inflammatory bowel disease Medical patient at bed rest Age 61-74 Arthroscopic surgery Major open surgery (> 45 min) Laparoscopic surgery (> 45 min) Malignancy Confined to bed (> 72 hours) Immobilizing plaster cast Central venous access Age >= 75 History of VTE Family history of VTE Factor V Leiden Prothrombin [id number] Lupus anticoagulant Anticardiolipin antibodies Elevated serum homocysteine Heparin-induced thrombocytopenia Other congenital or acquired thrombophilia Stroke (< 1 month) Elective arthroplasty Hip, pelvis, or leg fracture Acute spinal cord injury (< 1 month) Prophylaxis Regimen Total Risk Factor Score Risk Level Prophylaxis Regimen 0-1 Low Early ambulation 2 Moderate Order ONE of the following: *Sequential Compression Device (SCD) *Heparin 5000 units SQ BID 3-4 Higher Order ONE of the following medications: *Heparin 5000 units SQ TID *Enoxaparin/Lovenox 40 mg SQ daily (WT < 150 kg, CrCl > 30 mL/min) *Enoxaparin/Lovenox 30 mg SQ daily (WT < 150 kg, CrCl > 10-29 mL/min) *Enoxaparin/Lovenox 30 mg SQ BID (WT < 150 kg, CrCl > 30 mL/min) AND/OR *Sequential Compression Device (SCD) 5 or more Highest Order ONE of the following medications: *Heparin 5000 units SQ TID (Preferred with Epidurals) *Enoxaparin/Lovenox 40 mg SQ daily (WT < 150 kg, CrCl > 30 mL/min) *Enoxaparin/Lovenox 30 mg SQ daily (WT < 150 kg, CrCl > 10-29 mL/min) *Enoxaparin/Lovenox 30 mg SQ BID (WT < 150 kg, CrCl > 30 mL/min) AND *Sequential Compression Device (SCD) Assessment and Plan Assessment and Plan Assessment/plan: 1. NSTEMI/CAD/PVD Troponin 0.19 EKG showed normal sinus rhythm without ST segment elevations or depressions, reviewed by Heparin drip Cardiology consulted, appreciate recommendations. The patient's fibre optic cable splicer is Dr. Albarado Serial troponins/EKGs Continue home Plavix, metoprolol 2. Hypernatremia/hypokalemia/hypocalcemia Status post 500 cc bolus NS Magnesium, potassium and calcium repleted Monitor BMP 3. COPD Duonebs prn FEN NPO Electrolytes: as above Heparin ggt Case discussed with ER physician at length Physician Certification 2 Midnight Certification Type: Admission for Inpatient Services Order for Inpatient Services The services are ordered in accordance with Medicare regulations or non- Medicare payer requirements, as applicable. In the case of services not specified as inpatient-only, they are appropriately provided as inpatient services in accordance with the 2-midnight benchmark. Estimated LOS (days): 2 2 days is the estimated time the patient will need to remain in the hospital, assuming treatment plan goals are met and no additional complications. Post-Hospital Plan: Not yet determined Qi Aguilar MD May 11, 2017 23:23
[2017-05-11 23:40] VITALS: BP 89/54; PULSE 67; RESP 18; O2SAT 96
[2017-05-12] VITALS (23 sets, daily range): BP systolic 91–129; BP diastolic 54–82; PULSE 65–84; RESP 16–18; TEMP 97.2–98.3; O2SAT 93–98
[2017-05-12] MEDS ORDERED: SODIUM CHLOR 0.9% 1000 ML INJ 1,000 ML IV ONE
[2017-05-12] MEDS ORDERED: ONDANSETRON HCL 4 MG/2 ML VIAL IV PUSH PRN (03:30)
[2017-05-12 06:56] LABS: AUTOMATED NEUTROPHIL # 4.8 TH/MM3 (1.8-7.7); BASOPHIL % 0.6 % (0.0-2.0); EOSINOPHIL % 0.5 % (0.0-4.0); HEMATOCRIT 43.3 % (35.0-46.0); HEMO FLAGS DIFF FINAL; LYMPH % 31.1 % (9.0-44.0); LYMPHOCYTE # 2.4 TH/MM3 (1.0-4.8); MEAN CELL VOLUME 89.3 FL (80.0-100.0); MEAN CORPUSCULAR HEMOGLOBIN 29.8 PG (27.0-34.0); MEAN CORPUSCULAR HGB CONC 33.4 % (32.0-36.0); NEUT % 61.8 % (16.0-70.0); PLATELET COUNT 209 TH/MM3 (150-450); RED BLOOD COUNT 4.84 MIL/MM3 (4.00-5.30); RED CELL DISTRIBUTION WIDTH 14.2 % (11.6-17.2); WHITE BLOOD COUNT 7.8 TH/MM3 (4.0-11.0)
[2017-05-12 07:10] LABS: APTT (PATIENT) 34.8 SEC (24.3-30.1)
[2017-05-12 07:18] LABS: BICARBONATE 23.7 MEQ/L (21.0-32.0); HDL CHOLESTEROL 55.1 MG/DL (40.0-60.0); POTASSIUM 4.8 MEQ/L (3.5-5.1)
[2017-05-12] MEDS: METOPROLOL TARTRATE 25 MG TAB PO SCH ×2 (08:58→21:24)
[2017-05-12] MEDS: FAMOTIDINE 20 MG TAB PO SCH ×2 (08:58→21:24)
[2017-05-12] MEDS: CLOPIDOGREL 75 MG TAB PO SCH (08:58)
[2017-05-12] MEDS: SODIUM CHLORIDE 0.9% FLUSH 10 ML FLUSH IV FLUSH SCH ×2 (09:00→21:00)
[2017-05-12] MEDS ORDERED: ASPIRIN 325 MG TAB PO SCH (09:00)
--- NOTE | 2017-05-12 10:56 | MB ---
cc: GAGE WALKER M.D. DATE OF CONSULTATION 05/12/2017 REASON FOR CONSULTATION Non-ST elevation myocardial infarction. HISTORY OF PRESENT ILLNESS This is a 71-year-old female who is well-known to me. She had a past medical history of coronary artery disease status post myocardial infarction and stenting in 2008. Also a history of COPD, hyperlipidemia, peripheral arterial disease status post two stents and carotid disease. The patient presented to [facility] with chest pressure. A 12-lead EKG was obtained and was within normal limits. Troponin came back positive with a maximum value of 1.09. Currently, the patient is chest pain free. I was consulted for further evaluation and management. The patient denies PND, orthopnea or lower extremity edema or recent weight gain. ALLERGIES Unknown SOCIAL HISTORY Quit smoking a long time ago. She denies alcohol abuse. FAMILY HISTORY Noncontributory REVIEW OF SYSTEMS HEENT: No complaints of light headedness or dizziness. CARDIOVASCULAR: History of coronary artery disease status post two stents in the past. PULMONARY: History of COPD. GI: No history of GERD or GI bleed. : No history of polyuria, dysuria or renal failure. The remainder of her review of systems is within normal limits. PHYSICAL EXAM Blood pressure of 129/82 with a heart rate of 80, respiratory rate of 12. The patient is afebrile. NECK: Supple with no jugular venous distention. CHEST: Clear to auscultation and percussion. HEART: S1 normal intensity, S2 single. Regular rate and rhythm. No S3 appreciated. ABDOMEN: Benign. EXTREMITIES: No edema, clubbing or cyanosis. IMPRESSION 1. [id number] myocardial infarction. I have talked to the patient regarding performing left heart catheterization this Wednesday. I explained the risks involved which include , stroke, myocardial infarctions, dye allergy, renal failure and bleed. The patient understands the risks and wishes to proceed. 2. History of coronary artery disease status post two coronary stents in the past. 3. History of myocardial infarction. 4. History of COPD. 5. History of hyperlipidemia. RECOMMENDATIONS As mentioned above, the patient will under go left heart catheterization on Wednesday. I will continue to follow and provide further recommendations accordingly. MD EMMA Whelan/RACHELE /10:33 AM /10:43 AM
[2017-05-12 13:36] LABS: MAGNESIUM 2.4 MG/DL (1.5-2.5)
--- NOTE | 2017-05-12 15:02 | EKG ---
Date Performed: 05/12/2017 Time Performed: 06:47:06 PTAGE: 71 years EKG: Sinus arrhythmia Possible anterior infarct - age undetermined Lateral T wave changes are no nspecific Abnormal ECG PREVIOUS TRACING : 05/11/2017 18.37 DOCTOR: Tello Watson Interpretating Date/Time 05/12/2017 15:01:22
--- NOTE | 2017-05-12 15:38 | HHI.PR ---
Subjective Remarks No chest pain today. Troponins have had a downward trend through time. NSTEMI appears to have occurred but no active infarction appears present. Plan for heart catheter in 2 days, presently on heparin drip. Objective Vital Signs Date Time Temp Pulse Resp B/P (MAP) Pulse Ox O2 Delivery O2 Flow Rate FiO2 05/12/17 14:00 65 05/12/17 13:00 70 05/12/17 12:00 78 05/12/17 11:32 98.3 72 18 124/69 (87) 97 05/12/17 11:00 77 05/12/17 10:00 72 05/12/17 09:00 70 05/12/17 08:00 76 05/12/17 07:32 98.1 70 18 91/54 (66) 93 05/12/17 07:00 70 05/12/17 06:00 72 05/12/17 05:00 73 05/12/17 04:00 81 05/12/17 03:00 97.6 79 18 111/70 (84) 95 05/12/17 02:53 05/12/17 01:53 73 18 119/71 (87) 98 Nasal Cannula 2.00 05/11/17 23:40 96 Nasal Cannula 2.00 05/11/17 23:40 67 18 89/54 (66) 96 Nasal Cannula 2.00 05/11/17 22:00 95 18 147/74 (98) 97 05/11/17 19:16 78 18 129/82 (98) 96 Room Air 05/11/17 19:16 18 05/11/17 18:48 92 18 129/82 (98) 94 Room Air 05/11/17 18:48 98 Nasal Cannula 2.00 05/11/17 18:48 94 Room Air 2.00 I/O 05/11/17 05/11/17 05/11/17 05/12/17 05/12/17 05/12/17 07:00 15:00 23:00 07:00 15:00 23:00 Intake Total 797.8 ml Output Total 0 ml Balance 797.8 ml Intake Oral 0 ml IV Total 797.8 ml Output Urine Total 0 ml Result Diagram: 05/12/17 0448 05/12/17447 Objective Remarks GENERAL: NAD, A&Ox3 HEAD: Normocephalic. NECK: Supple, trachea midline. No lymphadenopathy. EYES: No scleral icterus. No injection or drainage. CARDIOVASCULAR: Regular rate and rhythm without murmurs, gallops, or rubs. RESPIRATORY: Breath sounds equal bilaterally. No accessory muscle use. GASTROINTESTINAL: Abdomen soft, non-tender, nondistended. MUSCULOSKELETAL: No cyanosis, or edema. SKIN: Warm and dry. NEURO: No focal neurological deficitis. A/P Problem List: (1) Non-STEMI (non-ST elevated myocardial infarction) ICD Code: I21.4 - Non-ST elevation (NSTEMI) myocardial infarction Assessment and Plan Assessment and Plan 71-year-old female admitted secondary to chest pain and non-STEMI NSTEMI Chest pain CAD PVD Plan for her catheterization on Wednesday Heparin drip continue Cardiology following Continue metoprolol Hypernatremia hypokalemia hypocalcemia Continue to monitor electrolytes Replace as needed COPD No exacerbation Continue duo nebs as needed DVT prophylaxis Patient is on heparin drip Russ Santamaria MD May 12, 2017 15:38
[2017-05-12] MEDS ORDERED: ACETAMINOPHEN 325 MG TAB PO ONE (15:45)
--- NOTE | 2017-05-12 15:47 | EKG ---
Date Performed: 05/11/2017 Time Performed: 18:37:41 PTAGE: 71 years EKG: Sinus rhythm POSSIBLE LEFT ATRIAL ENLARGEMENT BORDERLINE ECG PREVIOUS TRACING : 02/08/2017 16.49 DOCTOR: Tello Watson Interpretating Date/Time 05/12/2017 15:46:46
[2017-05-12 18:00] LABS: APTT (PATIENT) 46.4 SEC (24.3-30.1)
[2017-05-12] MEDS ORDERED: TEMAZEPAM 7.5 MG CAP PO ONE (21:00)
[2017-05-12] MEDS: ATORVASTATIN 80 MG TAB PO SCH (21:24)
[2017-05-13] VITALS (28 sets, daily range): BP systolic 108–130; BP diastolic 64–76; PULSE 67–92; RESP 16–20; TEMP 97.6–98.1; O2SAT 95–98
[2017-05-13 00:15] LABS: APTT (PATIENT) 45.9 SEC (24.3-30.1)
[2017-05-13] MEDS: HEPARIN-D5W 25,000 U/250 ML 250 ML IV PRN (02:35)
[2017-05-13 04:15] LABS: AUTOMATED NEUTROPHIL # 2.7 TH/MM3 (1.8-7.7); BASOPHIL # 0.1 TH/MM3 (0-0.2); BASOPHIL % 0.9 % (0.0-2.0); EOSINOPHIL # 0.1 TH/MM3 (0-0.4); EOSINOPHIL % 1.8 % (0.0-4.0); HEMO FLAGS DIFF FINAL; LYMPH % 49.8 % (9.0-44.0); LYMPHOCYTE # 3.4 TH/MM3 (1.0-4.8); MEAN CELL VOLUME 88.3 FL (80.0-100.0); MEAN CORPUSCULAR HEMOGLOBIN 29.7 PG (27.0-34.0); MEAN CORPUSCULAR HGB CONC 33.6 % (32.0-36.0); MONO % 7.8 % (0.0-8.0); NEUT % 39.7 % (16.0-70.0); PLATELET COUNT 188 TH/MM3 (150-450); RED BLOOD COUNT 4.64 MIL/MM3 (4.00-5.30); RED CELL DISTRIBUTION WIDTH 14.2 % (11.6-17.2); WHITE BLOOD COUNT 6.8 TH/MM3 (4.0-11.0)
[2017-05-13 04:23] LABS: APTT (PATIENT) 45.2 SEC (24.3-30.1)
[2017-05-13 05:00] LABS: ALKALINE PHOSPHATASE 79 U/L (45-117); ALT (GPT) 16 U/L (10-53); ANION GAP 8 MEQ/L (5-15); AST (GOT) 15 U/L (15-37); BICARBONATE 24.1 MEQ/L (21.0-32.0); BLOOD UREA NITROGEN 11 MG/DL (7-18); CHLORIDE 110 MEQ/L (98-107); GLOMERULAR FILTRATION RATE 92 ML/MIN (>89); MAGNESIUM 2.2 MG/DL (1.5-2.5); POTASSIUM 3.8 MEQ/L (3.5-5.1); SODIUM (NA) 142 MEQ/L (136-145); TOTAL BILIRUBIN ADULT 0.6 MG/DL (0.2-1.0)
[2017-05-13] MEDS: METOPROLOL TARTRATE 25 MG TAB PO SCH ×2 (08:25→20:07)
[2017-05-13] MEDS: CLOPIDOGREL 75 MG TAB PO SCH (08:26)
[2017-05-13] MEDS: ACETAMINOPHEN 500 MG CPLT PO PRN ×2 (08:26→23:13)
[2017-05-13] MEDS: SODIUM CHLORIDE 0.9% FLUSH 10 ML FLUSH IV FLUSH SCH ×2 (08:26→20:10)
[2017-05-13] MEDS: FAMOTIDINE 20 MG TAB PO SCH ×2 (08:26→20:07)
--- NOTE | 2017-05-13 14:47 | HHI.PR ---
Subjective Remarks Patient states she hadn't episode of large black tarry looking stool this morning associated with some lightheadedness and dizziness. She had smaller episodes of same later in the day. No abdominal pain. No chest pain or chest pressure or shortness of breath. Also having a global headache which is typical for her although somewhat stronger, she declined to take anything stronger than Tylenol. Objective Vitals Vital Signs Date Time Temp Pulse Resp B/P (MAP) Pulse Ox O2 Delivery O2 Flow Rate FiO2 05/13/17 14:00 77 05/13/17 13:00 74 05/13/17 12:00 70 05/13/17 11:25 98.0 71 18 119/76 (90) 98 05/13/17 11:00 75 05/13/17 10:00 72 05/13/17 09:00 78 05/13/17 08:00 71 05/13/17 07:23 97.6 82 16 130/68 (88) 96 05/13/17 07:00 72 05/13/17 06:00 71 05/13/17 05:10 70 05/13/17 04:05 68 05/13/17 03:00 72 05/13/17 03:00 97.9 71 16 112/71 (85) 95 05/13/17 02:01 79 05/13/17 01:03 74 05/13/17 00:00 79 05/12/17 23:00 76 05/12/17 22:37 97.5 76 16 119/71 (87) 93 05/12/17 19:00 71 05/12/17 19:00 97.2 74 17 125/82 (96) 96 05/12/17 18:00 84 05/12/17 17:00 70 05/12/17 16:00 66 05/12/17 15:36 97.5 70 18 129/70 (89) 97 05/12/17 15:00 68 I/O 05/12/17 05/12/17 05/12/17 05/13/17 05/13/17 05/13/17 07:00 15:00 23:00 07:00 15:00 23:00 Intake Total 797.8 ml 1025 ml 334.5 ml Output Total 0 ml Balance 797.8 ml 1025 ml 334.5 ml Intake Oral 0 ml 920 ml 240 ml IV Total 797.8 ml 105 ml 94.5 ml Output Urine Total 0 ml # Voids 4 3 # Bowel Movements 1 Result Diagram: 05/13/17 0355 05/13/17 0355 Objective Remarks GENERAL: Well-nourished, well-developed patient. SKIN: Warm and dry. HEAD: Normocephalic. EYES: No scleral icterus. No injection or drainage. NECK: Supple, trachea midline. No JVD or lymphadenopathy. CARDIOVASCULAR: Regular rate and rhythm without murmurs, gallops, or rubs. RESPIRATORY: Breath sounds equal bilaterally. No accessory muscle use. GASTROINTESTINAL: Abdomen soft, non-tender, nondistended. EXTREMITIES: No cyanosis, or edema. NEUROLOGICAL: Awake, alert, and oriented x 3. Non-focal. A/P Problem List: (1) Diarrhea ICD Code: R19.7 - Diarrhea, unspecified (2) Peripheral vascular disease ICD Code: I73.9 - Peripheral vascular disease Status: Acute (3) COPD (chronic obstructive pulmonary disease) ICD Code: J44.9 - COPD (chronic obstructive pulmonary disease) Status: Acute (4) COPD with emphysema ICD Code: J43.9 - COPD with emphysema Status: Acute (5) CAD (coronary artery disease) ICD Code: I25.9 - CAD (coronary artery disease) Status: Acute (6) Non-STEMI (non-ST elevated myocardial infarction) ICD Code: I21.4 - Non-ST elevation (NSTEMI) myocardial infarction (7) Hypernatremia ICD Code: E87.0 - Hyperosmolality and hypernatremia Status: Acute (8) Hypocalcemia ICD Code: E83.51 - Hypocalcemia Status: Acute (9) Hypokalemia ICD Code: E87.6 - Hypokalemia Status: Acute Assessment and Plan NSTEMI, hx CAD with 2 stents in the past For heart catheter tomorrow with Dr. Arizmendi Continue Plavix she has an aspirin allergy Continue metoprolol, lipitor Will hold heparin drip as she had black diarrhea possible melena Black diarrhea, possible melena. Hold heparin drip Check Hemoccult and CBC and C. difficile Discussed with nurse PVD History of carotid artery disease COPD without acute exacerbation Hypernatremia - resolved hypokalemia-resolved hypocalcemia-mild Continue to monitor electrolytes Replace as needed COPD No exacerbation Continue duo nebs as needed DVT prophylaxis SCDs Sherry Campbell MD May 13, 2017 14:47
[2017-05-13 17:51] LABS: C. DIFF EPI 027 PRESUMPTIVE NEGATIVE (NEGATIVE)
[2017-05-13] MEDS: ATORVASTATIN 80 MG TAB PO SCH (20:07)
[2017-05-13] MEDS: RANITIDINE HCL SYRUP 150 MG/10 ML UDC PO SCH (20:07)
[2017-05-14] VITALS (20 sets, daily range): BP systolic 104–127; BP diastolic 58–67; PULSE 60–89; RESP 16–20; TEMP 97.7–98; O2SAT 96–97
[2017-05-14 05:07] LABS: APTT (PATIENT) 26.3 SEC (24.3-30.1)
[2017-05-14] MEDS: METOPROLOL TARTRATE 25 MG TAB PO SCH (08:10)
[2017-05-14] MEDS: FAMOTIDINE 20 MG TAB PO SCH (08:10)
[2017-05-14] MEDS: CLOPIDOGREL 75 MG TAB PO SCH (08:10)
[2017-05-14] MEDS: RANITIDINE HCL SYRUP 150 MG/10 ML UDC PO SCH (08:10)
[2017-05-14] MEDS: SODIUM CHLORIDE 0.9% FLUSH 10 ML FLUSH IV FLUSH SCH (08:11)
--- NOTE | 2017-05-14 10:52 | HHI.PR ---
Subjective Remarks Complains of chronic back and leg pain. Will have heart cath today. No chest pain or SOB Objective Vitals Vital Signs Date Time Temp Pulse Resp B/P (MAP) Pulse Ox O2 Delivery O2 Flow Rate FiO2 05/14/17 10:00 60 05/14/17 09:00 68 05/14/17 08:00 89 05/14/17 07:23 97.9 69 16 107/59 (75) 96 05/14/17 07:00 64 05/14/17 06:05 67 05/14/17 05:00 73 05/14/17 04:00 98.0 67 20 104/60 (75) 97 05/14/17 04:00 67 05/14/17 03:05 67 05/14/17 02:00 70 05/14/17 01:00 69 05/14/17 00:00 67 05/13/17 23:25 98.1 91 20 114/69 (84) 97 05/13/17 23:00 91 05/13/17 22:00 81 05/13/17 21:00 69 05/13/17 20:00 79 05/13/17 20:00 97.9 76 20 108/64 (79) 97 05/13/17 19:00 76 05/13/17 18:00 81 05/13/17 17:00 92 05/13/17 16:00 76 05/13/17 15:21 98.1 72 16 108/69 (82) 96 05/13/17 15:00 67 05/13/17 14:00 77 05/13/17 13:00 74 05/13/17 12:00 70 05/13/17 11:25 98.0 71 18 119/76 (90) 98 05/13/17 11:00 75 I/O 05/13/17 05/13/17 05/13/17 05/14/17 05/14/17 05/14/17 07:00 15:00 23:00 07:00 15:00 23:00 Intake Total 334.5 ml 720 ml 240 ml Balance 334.5 ml 720 ml 240 ml Intake Oral 240 ml 720 ml 240 ml IV Total 94.5 ml # Voids 3 3 2 # Bowel Movements 1 Result Diagram: 05/13/17 0355 05/13/17 0355 Objective Remarks GENERAL: This is a well-nourished, well-developed patient, in no apparent distress. CARDIOVASCULAR: Normal rate and regular rhythm without murmurs, gallops, or rubs. RESPIRATORY: Good respiratory efforts. Breath sounds equal and clear to auscultation bilaterally. GASTROINTESTINAL: Abdomen soft, non-tender, non-distended. Normal active bowel sounds MUSCULOSKELETAL: Extremities without cyanosis, or edema. NEURO: Alert & Oriented x4 to person, place, time, situation. Moves all ext x4 PSYCH: Appropriate mood and affect. A/P Problem List: (1) Diarrhea ICD Code: R19.7 - Diarrhea, unspecified (2) Peripheral vascular disease ICD Code: I73.9 - Peripheral vascular disease Status: Acute (3) COPD (chronic obstructive pulmonary disease) ICD Code: J44.9 - COPD (chronic obstructive pulmonary disease) Status: Acute (4) COPD with emphysema ICD Code: J43.9 - COPD with emphysema Status: Acute (5) CAD (coronary artery disease) ICD Code: I25.9 - CAD (coronary artery disease) Status: Acute (6) Non-STEMI (non-ST elevated myocardial infarction) ICD Code: I21.4 - Non-ST elevation (NSTEMI) myocardial infarction (7) Hypernatremia ICD Code: E87.0 - Hyperosmolality and hypernatremia Status: Acute (8) Hypocalcemia ICD Code: E83.51 - Hypocalcemia Status: Acute (9) Hypokalemia ICD Code: E87.6 - Hypokalemia Status: Acute Assessment and Plan 71-year-old female with: NSTEMI, hx CAD with 2 stents in the past For heart catheter today with Dr. Albarado Continue Plavix she has an aspirin allergy Continue metoprolol, lipitor Black stool per patient. Heparin was discontinued. No dark stool noted by staff Hemoccult negative. No further episodes PVD History of carotid artery disease COPD No exacerbation Continue duo nebs as needed Chronic back pain - Continue home meds. DVT prophylaxis DONYAs Dang Stuart MD May 14, 2017 10:52
[2017-05-14] MEDS ORDERED: HEPARIN-NS/PF INJ 1,000 ML ONE (13:21)
[2017-05-14] MEDS ORDERED: MIDAZOLAM HCL 2 MG/2 ML VIAL ONE (13:22)
[2017-05-14] MEDS ORDERED: diphenhydrAMINE HCL 50 MG/ML VIAL ONE (13:28)
[2017-05-14] MEDS ORDERED: ONDANSETRON HCL 4 MG/2 ML VIAL IV PUSH PRN (14:00)
[2017-05-14] MEDS ORDERED: MISC INFORMATION XX ONE (14:00)
[2017-05-14] MEDS ORDERED: SODIUM CHLORIDE 0.9% FLUSH 10 ML FLUSH IV FLUSH PRN (14:00)
--- NOTE | 2017-05-14 14:02 | CATHPROC ---
[place] HIS Report Study Information Study Number Admission Scheduled Start Study Start [id number] May 11 2017 9:12PM 05/14/2017 May 14 2017 1:04PM [place] [facility] Cardiac Catheterization Admit Source Facility Department Emergency department [facility] Phys[facility] and Clinical Staff Initial Sue Martinez Grazing Aide Yosef Henry RN Recorder Kaleb Carmona,RT(R) Scrub Marilyn Mcduffie,RT(R) Procedures Performed Procedure Location (Site) Vessel Name Coronary Angiograms LCA Left Coronary Coronary Angiograms RCA Right Coronary L Heart Cath Equipment Time Work Order Detailer Description Size Mfg Part Number Used/Scraped [id number] 13:47 [employer] MEDICAL VASCADE, FR5 CLOSURE SYSTEM FR 5 Used *[id number] *[id number] *[id number] [id number] *[id number] 13:05 [employer] PACK, CCL CUSTOM * Used *[id number] 13:05 [employer] PACER PEN, SKIN DUAL W/ RULER * Used *[id number] 13:05 Sojeans WIRE, 3MMJ .035 180CM 180CM Used *[id number] 13:05 NAMIC MANIFOLD, 4 PORT * Used *[id number] 13:05 NYCOMED OMNIPAQUE, 350 MG, 150ML 150ML [id number] Used [id number] 13:05 [employer] MEDICAL BLANKET,WARM AIR CCL * Used *[id number] 13:05 TERUMO MEDICAL SHEATH, FR5 TERUMO (10CM) FR 5 Used *[id number] History: Current Medications Medication Dosage/Unit Route Frequency Last Date/Time Taken LIPITOR PLAVIX History: Allergies Allergy Reaction aspirin Ulcers codeine Nausea/Vomiting Percocet Nausea/Vomiting Sulfa UNKNOWN; "ALMOST " Sulfa (Sulfonamide Antibiotics) UNKNOWN; "ALMOST " oxycodone Nausea/Vomiting acetaminophen Nausea/Vomiting History: Risk Factors Family History of Hypertension Dyslipidemia Previous UT Previous Heart Failure Premature CAD Yes Yes No Yes No Prior Valve Prior PCI Prior PCIDate Prior CABG Surgery No Yes 04/30/2005 No Cerebrovascular Peripheral Artery Chronic Lung On Dialysis Diabetes Disease Disease Disease No No Yes Yes No History: Risk Factors Selection Items Current Smoker Hypercholesterolemia-Lipid Low. Therapy History: CV Disease Selection Items Known CAD UT History: Stress Tests Stress or Imaging Studies Performed No History: Other Disease Selection Items CAD COPD HTN History: Other Current Smoker Method Packs a Day Years Used Pack Years Yes Cigarettes 2 51 102 Labs Hgb (g/dl) Hct (%) RBC (MIL/MM3) WBC (l/cumm) Platelets (thousands) 11.60-17.00 35.00-51.00 4.00-5.90 4.00-11.00 150.00-450.00 13.8 41 4.6 4 188 Glucose (mg/dl) BUN (mg/dl) Creatinine (mg/dl) BUN:Creatinine (1:x) 74.00-106.00 7.00-18.00 0.50-1.30 10.00-20.00 92 11 0.6 18.3 Na (meq/l) K (meq/l) Cl (meq/l) CO2 (mmol/L) Ca (mg/dl) 136.00-145.00 3.50-5.10 98.00-107.00 21.00-32.00 8.50-10.10 142 3.8 110 24.1 8.3 PT (sec) PTT (sec) INR (PTT:PT) 9.80-11.60 24.30-30.10 0.90-1.10 9.8 26.3 1 Troponin I (ng/ml) Troponin T (ng/ml) CPK-MB (ng/ML) 0.02-0.05 0.40-2.10 0.50-3.60 1.09 0.68 Not Drawn Medication Medication Total Dose (Bolus/Oral) Medication Total Dosage/Unit 1% XYLOCAINE 20 mL FENTANYL 50 mcg VERSED 1 mg Medications (Bolus/Oral) Medication Time Given Dosage/Unit Administered By Reason VERSED 05/14/2017 1:27:35 PM 1 mg Yosef Henry 1 mg VERSED given in lab by Yosef Henry RN in Left Antecubital via Peripheral IV. FENTANYL 05/14/2017 1:28:35 PM 50 mcg Yosef Henry 50 mcg FENTANYL given in lab by Yosef Henry RN in Left Antecubital via Peripheral IV. 1% XYLOCAINE 05/14/2017 1:32:18 PM 20 mL Sue Albarado 20 mL 1% XYLOCAINE given in lab by Shamsin, Ahmad in Right Groin via Subcutaneous. Medication (Drip) Medication Time Given Dosage/Unit Concentration/Unit Diluent (ml) Solution IV Solutions 05/14/2017 1:13:22 PM 0 mL (IV) 500 NaCl .9 IV Solutions given in lab by Yosef Henry, RN in Left Antecubital via Peripheral IV. Pump/Drip Flow = 20 ml/hr using NaCl .9. Initial Case Assessment Cardiovascular HR Rhythm Chest Pain 63 Sinus 0 Edema Present Skin color Skin None Normal Warm Dry Circulatory - Right Pulses Dorsalis Pedis Femoral 1 2 Scale (0,1,2,3,4,d) Circulatory - Left Pulses Dorsalis Pedis Femoral 1 2 Scale (0,1,2,3,4,d) Neurological State Oriented to time-place- Alert Moves all extremities person Respiration - General Respiration Rate SpO2 (%) O2 (lpm) (B/min) 20 97 0 Final Case Assessment Cardiovascular HR Rhythm NIBP Chest Pain 78 Sinus 131/76 0 Edema Present Skin color Skin None Normal Warm Dry Circulatory - Right Pulses Dorsalis Pedis Femoral 1 2 Scale (0,1,2,3,4,d) Circulatory - Left Pulses Dorsalis Pedis Femoral 1 2 Scale (0,1,2,3,4,d) Neurological State Oriented to time-place- Alert Moves all extremities person Respiration - General Respiration Rate SpO2 (%) O2 (lpm) (B/min) 20 95 0 Chronological Log Time Study Chronological Log 13:13:07 Patient arrived via Bed. 13:13:07 Patient Name, D.O.B, / Armband Verified By R.N. 13:13:08 Consent signed by the physician and the patient and verified by the [facility] staff. 13:13:08 Pre-op and post- op instructions given; patient acknowledges understanding of instructions. 13:13:09 Verbal Stimulation=2 Physical Stimulation=2 Airway=2 Respiration=2 TOTAL=8. (0=absent, 1=li mited, 2=present) 13:13:10 Presedation assessment performed by [facility] RN. 13:13:14 Patient has been NPO for More than 6Hrs. 13:13:15 Skin Breakdown- none per patient. 13:13:17 Patient Warmer Placed on the Table. 13:13:18 Rylee Prominences Protected 13:13:20 A # 20 IV was noted in the Antecubital (left). Grade = 0 IV Solutions given in lab by Yosef Henry RN in Left Antecubital via Peripheral IV. Pump/Drip Flow = 20 ml/hr using :: NaCl .9. 13::23 History and physical on the chart or being dictated. Assessment: Initial Case, HR=63 BPM, Rhythm=Sinus, Chest Pain=0, Edema=None, Color=Normal, Skin = Warm, Dry Right Pulses: Adam Ped=1, Femoral=2 13::25 Left Pulses: Adam Ped=1, Femoral=2 Neurological: State=Alert, Ox3, PAT Respiration: Resp=20 B/min, SpO2=97 %, O2=0 lpm Vitals capture started with the following parameters, Patient=Adult, Interval=5 min, Initial Pr hzlyaz=472 mmHg, :18:54 Deflation Rate=5 mmHg, Cuff placed on Right Arm Vitals capture started with the following parameters, Patient=Adult, Interval=5 min, Initial Pr ehfasg=624 mmHg, ::24 Deflation Rate=5 mmHg, Cuff placed on Right Arm 13:22:03 HR=58 bpm, HJHN=666/83 mmhg, SpO2=98.0 %, Resp=22 B/min, Pain=0, Karlo=10, Mays=2 13:23:15 Reference ECG taken 13:25:34 MD arrived. 13:27:35 1 mg VERSED given in lab by Yosef Henry RN in Left Antecubital via Peripheral IV. 13:27:39 HR=59 bpm, JBWY=625/88 mmhg, SpO2=96.0 %, Resp=21 B/min, Pain=0, Karlo=10, Mays=2 13:28:35 50 mcg FENTANYL given in lab by Yosef Henry RN in Left Antecubital via Peripheral IV. 13:28:48 Pressure channel 1 zeroed. Time Out. Correct patient, correct procedure, correct physician, power injector not loaded with contrast with surgical 13:31:23 team present. Time Out Concurred by MD and individual staff in procedure. 13:32:03 HR=80 bpm, OONN=181/77 mmhg, SpO2=95.0 %, Resp=27 B/min, Pain=0, Karlo=10, Mays=2 13:32:13 Case Start :32:18 20 mL 1% XYLOCAINE given in lab by Sue Albarado in Right Groin via Subcutaneous. 13:33:26 Access site was Right Femoral Artery. 13:33:34 A SHEATH, FR5 TERUMO (10CM) FR 5 was advanced into the Fem Art (right) using the Percutaneo us technique. A JL 4.0 INFINITI CATHETER FR 5 was advanced over a wire. OMNIPAQUE, 350 MG, 150ML 150ML was us ed for 13:35:04 injections. Recorded Pressure: LV, Ao, HR=79, Condition=Condition 1 13:35:29 (Left Ventricle) LV 145/7/24, (Aorta) Ao 148/62/96 Recorded Pressure: Ao, HR=78, Condition=Condition 1 13:35:34 (Aorta) Ao 138/56/94 13:36:17 The LCA was injected and visualized at various angles. OMNIPAQUE, 350 MG, 150ML 150ML used . 13:37:00 HR=78 bpm, HSMX=291/81 mmhg, SpO2=95.0 %, Resp=30 B/min, Pain=0, Karlo=10, Mays=2 After removing the current catheter a JR 4.0 INFINITI CATHETER FR 5 was advanced over a WIRE, 3 MMJ .035 180CM 13:38:21 180CM. 13:39:47 The RCA was injected and visualized at various angles. OMNIPAQUE, 350 MG, 150ML 150ML used . 13:42:01 HR=87 bpm, UPPE=188/75 mmhg, SpO2=95.0 %, Resp=30 B/min, Pain=0, Karlo=10, Mays=2 13:45:29 Catheter was removed 13:46:39 An injection in the Fem Art (right) was made through the SHEATH, FR5 TERUMO (10CM) FR 5. 13:47:00 HR=79 bpm, BEZX=482/76 mmhg, SpO2=95.0 %, Resp=27 B/min, Pain=0, Karlo=10, Mays=2 13:47:11 VASCADE, FR5 CLOSURE SYSTEM FR 5 placement in the Fem Art (right) 13:47:53 Case End Assessment: Final Case, HR=78 BPM, Rhythm=Sinus, PRVO=970/76 mmhg, Chest Pain=0, Edema=None, Color=Normal, Skin = Warm, Dry Right Pulses: Adam Ped=1, Femoral=2 13:47:56 Left Pulses: Adam Ped=1, Femoral=2 Neurological: State=Alert, Ox3, PAT Respiration: Resp=20 B/min, SpO2=95 %, O2=0 lpm 13:48:59 Sterile dressing applied to site 13:49:00 No case complications noted. 13:49:04 Cine recording checked. 13:50:36 A Left Heart Cath was performed. 13:52:01 HR=78 bpm, YEJL=852/76 mmhg, SpO2=96.0 %, Resp=13 B/min, Pain=0, Karlo=10, Mays=2 13:57:06 Bedside Report will be given. 13:57:35 HR=79 bpm, DOYF=478/83 mmhg, Resp=26 B/min, Pain=0, Karlo=10, Mays=2 13:57:39 Vitals capture stopped. 14:01:15 Patient moved to [facility] End Study - Contrast Media Used In Study Contrast Total Opened (mL) Total Used (mL) Total Wasted (mL) Omnipaque 150 40 110 End Study - Maximum Contrast Load Max Contrast Load (mL) 526.5 End Study - Radiation Exposure Fluoro Time (minutes) 1.8 End Study - Patient Disposition Complications Transferred To Interventional Outcome No Telemetry Bed No attempt made
[2017-05-14] MEDS ORDERED: IOHEXOL 350 MG/ML 50 ML BTL (for Cath Lab) OTHER ONE (14:22)
--- NOTE | 2017-05-14 14:52 | MA ---
cc: GAGE WALKER M.D. DATE: May 14, 2017 PROCEDURE: Left heart catheterization. BRIEF HISTORY: This is a 71-year-old female with past medical history of coronary artery disease status post stenting. She presented to [facility] with oxv-LL-wmszbmjqh myocardial infarction this left heart catheterization was performed to rule out obstructive coronary artery disease. PROCEDURAL NOTE: After all risks and benefits were explained, and informed consent was obtained, the patient was brought to the catheterization lab in a fasting state. The right groin was sterilized and prepped in the usual manner. 1% Xylocaine was used to anesthetize the right groin triangle. According to the modified Seldinger approach, a 5 [place] sheath was placed in the right femoral artery without any difficulty. A left heart catheterization was then carried out using size 4 left and right Jose catheters. A pigtail catheter was used to access the left ventricle to perform left ventriculography. After multiple fluoroscopic views were obtained, all catheters were pulled. There was no apparent complication. FINDINGS CORONARY ANATOMY: LEFT MAIN: The left main is a moderate sized vessel which originates from the left coronary cusp. It gives rise to left anterior descending artery and left circumflex artery - the left main is free of atherosclerosis. LEFT ANTERIOR DESCENDING: Left anterior descending artery. This is moderate-sized vessel which courses into the apex and wraps around it gives off first and second diagonal arteries. There is mild luminal irregularity in the proximal segment of the LAD otherwise the left anterior descending system is free of sclerosis. LEFT CIRCUMFLEX: Left circumflex artery that moderate-sized vessel which gives off first and second obtuse marginal arteries. The left circumflex has 50% stenosis involving the middle segment the distal segments free of atherosclerosis. The first second obtuse marginal arteries are free of atherosclerosis. RIGHT CORONARY ARTERY: The RCA is a large-size vessel which originates from the right colon cusp is dominant reverse of the small posterior descending artery there is a stent previously placed in the proximal segment which has no evidence of in-stent restenosis. The distal stent in the RCA is also free of atherosclerosis. There is 50% stenosis involving the middle segment of the RCA. CONCLUSION The patient has moderate disease involving the middle left circumflex artery and middle right coronary artery. She has two patent stents in the right coronary artery medical management appropriate. MD EMMA Whelan/jacki /1:57 PM /2:31 PM
[2017-05-14] MEDS ORDERED: MORPHINE SULFATE 2 MG/ML INJ IV PUSH PRN (16:30)
[2017-05-14] MEDS ORDERED: SODIUM CHLORIDE 0.9% FLUSH 10 ML FLUSH IV FLUSH SCH (21:00)
== END 2017-05-14 18:18 | disposition home or self-care (01) | DRG 281 ==
LOC: NEPC 18:26 → NEDA 21:12 → HCPC 05-12 02:45
PROVIDERS: ADMIT Family Medicine; ATTEND Family Medicine
PROC: B2111ZZ Fluoroscopy of Multiple Coronary Arteries using Low Osmolar Contrast (ICD-10-PCS; 2017-05-14)
PROC: B2151ZZ Fluoroscopy of Left Heart using Low Osmolar Contrast (ICD-10-PCS; 2017-05-14)
PROC: 4A023N7 Measurement of Cardiac Sampling and Pressure, Left Heart, Percutaneous Approach (ICD-10-PCS; principal; 2017-05-14 13:30)
DX: I21.4 Non-ST elevation (NSTEMI) myocardial infarction (principal); E87.0 Hyperosmolality and hypernatremia; I25.119 Atherosclerotic heart disease of native coronary artery with unspecified angina pectoris; I25.2 Old myocardial infarction; I73.9 Peripheral vascular disease, unspecified; E87.6 Hypokalemia; E83.51 Hypocalcemia; M81.0 Age-related osteoporosis without current pathological fracture; F17.210 Nicotine dependence, cigarettes, uncomplicated; J43.9 Emphysema, unspecified; I10 Essential (primary) hypertension; K21.9 Gastro-esophageal reflux disease without esophagitis; G43.909 Migraine, unspecified, not intractable, without status migrainosus; K44.9 Diaphragmatic hernia without obstruction or gangrene; E78.5 Hyperlipidemia, unspecified; R42 Dizziness and giddiness; R19.7 Diarrhea, unspecified; G89.29 Other chronic pain; M54.9 Dorsalgia, unspecified; M79.606 Pain in leg, unspecified; Z79.01 Long term (current) use of anticoagulants; Z88.6 Allergy status to analgesic agent; Z95.5 Presence of coronary angioplasty implant and graft; Z90.710 Acquired absence of both cervix and uterus
CPT/HCPCS: 71010; 76937; 80048; 80053; 80061; 82272; 82550; 83735; 83880; 84100; 84484; 85025; 85610; 85730; 87493; 93005; 93454; 96361; 96374; C1760; C1769; C1893; G0269; J0610; J1200; J1644; J2250; J2270; J3010; J3475; J3480; J7030; J7040; Q9967

== ENCOUNTER → 2017-07-20 | Outpatient (CLI) | payer MEDICARE, MEDICAID ==
[~2017-07-20] MED LIST changes: -PRED50 PO
[2017-07-20 07:38] LABS: ALT (GPT) 12 U/L (10-53); AST (GOT) 11 U/L (15-37); BICARBONATE 27.5 MEQ/L (21.0-32.0); CALCIUM 8.8 MG/DL (8.5-10.1); CHLORIDE 107 MEQ/L (98-107); CHOLESTEROL 228 MG/DL (120-200); CREATININE 0.73 MG/DL (0.50-1.00); GLOMERULAR FILTRATION RATE 79 ML/MIN (>89); GLUCOSE,FASTING 91 MG/DL (74-99); SODIUM (NA) 141 MEQ/L (136-145); TRIGLYCERIDES 136 MG/DL (42-150)
[2017-07-20 07:44] LABS: ALBUMIN 3.5 GM/DL (3.4-5.0); ALKALINE PHOSPHATASE 89 U/L (45-117); BLOOD UREA NITROGEN 13 MG/DL (7-18); CHOLESTEROL/ HDL RATIO 4.87 RATIO; HDL CHOLESTEROL 46.8 MG/DL (40.0-60.0); LDL CHOLESTEROL 154 MG/DL (0-99); TOTAL BILIRUBIN ADULT 0.5 MG/DL (0.2-1.0)
== END ==
LOC: CLAB 06:49
PROVIDERS: ATTEND Family Medicine
DX: I25.10 Atherosclerotic heart disease of native coronary artery without angina pectoris (principal); E78.5 Hyperlipidemia, unspecified; I11.9 Hypertensive heart disease without heart failure; I25.2 Old myocardial infarction; I73.9 Peripheral vascular disease, unspecified
CPT/HCPCS: 36415; 80053; 80061

== ENCOUNTER → 2017-11-15 | Outpatient (CLI) | payer MEDICARE ==
[~2017-11-15] MED LIST changes: +DULC100C PO
[2017-11-15 07:37] LABS: AUTOMATED NEUTROPHIL # 2.9 TH/MM3 (1.8-7.7); BASOPHIL # 0.1 TH/MM3 (0-0.2); BASOPHIL % 0.7 % (0.0-2.0); EOSINOPHIL # 0.2 TH/MM3 (0-0.4); EOSINOPHIL % 2.1 % (0.0-4.0); HEMATOCRIT 46.7 % (35.0-46.0); HEMOGLOBIN 15.9 GM/DL (11.6-15.3); LYMPH % 49.2 % (9.0-44.0); LYMPHOCYTE # 3.5 TH/MM3 (1.0-4.8); MEAN CELL VOLUME 89.1 FL (80.0-100.0); MEAN CORPUSCULAR HEMOGLOBIN 30.3 PG (27.0-34.0); MEAN PLATELET VOLUME 8.8 FL (7.0-11.0); MONO % 7.1 % (0.0-8.0); MONOCYTE # 0.5 TH/MM3 (0-0.9); NEUT % 40.9 % (16.0-70.0); PLATELET COUNT 225 TH/MM3 (150-450); RED BLOOD COUNT 5.24 MIL/MM3 (4.00-5.30); RED CELL DISTRIBUTION WIDTH 14.3 % (11.6-17.2); WHITE BLOOD COUNT 7.1 TH/MM3 (4.0-11.0)
[2017-11-15 07:52] LABS: ALBUMIN 3.7 GM/DL (3.4-5.0); AST (GOT) 9 U/L (15-37); BICARBONATE 27.5 MEQ/L (21.0-32.0); BLOOD UREA NITROGEN 14 MG/DL (7-18); CALCIUM 8.8 MG/DL (8.5-10.1); CHLORIDE 108 MEQ/L (98-107); CHOLESTEROL 194 MG/DL (120-200); GLOMERULAR FILTRATION RATE 83 ML/MIN (>89); GLUCOSE,FASTING 84 MG/DL (74-99); SODIUM (NA) 143 MEQ/L (136-145); TRIGLYCERIDES 127 MG/DL (42-150)
[2017-11-15 07:55] LABS: ALKALINE PHOSPHATASE 86 U/L (45-117); ALT (GPT) 13 U/L (10-53); CHOLESTEROL/ HDL RATIO 4.12 RATIO; LDL CHOLESTEROL 122 MG/DL (0-99); TOTAL BILIRUBIN ADULT 0.4 MG/DL (0.2-1.0); TOTAL PROTEIN 6.9 GM/DL (6.4-8.2)
== END ==
LOC: CLAB 06:50
PROVIDERS: ATTEND Family Medicine
DX: J44.9 Chronic obstructive pulmonary disease, unspecified (principal); E78.5 Hyperlipidemia, unspecified; I11.9 Hypertensive heart disease without heart failure; I73.9 Peripheral vascular disease, unspecified; I25.119 Atherosclerotic heart disease of native coronary artery with unspecified angina pectoris; I25.2 Old myocardial infarction; Z79.01 Long term (current) use of anticoagulants; Z68.23 Body mass index [BMI] 23.0-23.9, adult
CPT/HCPCS: 36415; 80053; 80061; 85025

== ENCOUNTER 2017-11-16 20:27 | Emergency (ER) | payer MEDICARE ==
[~2017-11-16] VITALS: Ht 157.5 cm; Wt 61.6 kg
[~2017-11-16 20:27] MED LIST changes: -DULC100C PO
[2017-11-16 20:44] VITALS: BP 186/79; PULSE 74; RESP 18; TEMP 97.6; O2SAT 96
[2017-11-16] MEDS ORDERED: DULC100C PO (22:24)
--- NOTE | 2017-11-16 22:40 | PD ---
HPI Chief Complaint: Abdominal Pain Time Seen by Provider: 22:37 Travel History International Travel<30 days: No Contact w/Intl Traveler<30days: No Traveled to known affect area: No History of Present Illness HPI The patient is a 72-year-old female that has been constipated for 4 days. She has been taking care of her and has not been drinking adequate liquids. She has slight nausea without vomiting. She denies any fever. She has abdominal pain which she describes as an 8/10 a fullness like pain in mostly the lower quadrants of the abdomen bilaterally. She still has her appendix and gallbladder. PFSH Past Medical History Hx Anticoagulant Therapy: Yes Arthritis: Yes (OSTEOPOROSIS) Asthma: Yes Autoimmune Disease: No Blood Disorders: No Anxiety: No Depression: No Heart Rhythm Problems: No Cancer: No Cardiac Catheterization: Yes Cardiovascular Problems: Yes (MIx2) High Cholesterol: Yes Chemotherapy: No Chest Pain: Yes Congestive Heart Failure: No COPD: Yes Cerebrovascular Accident: No Coronary Artery Disease: Yes ([place]) Diabetes: No Diminished Hearing: No Diverticulitis: Yes Endocrine: No Gastrointestinal Disorders: Yes GERD: Yes Genitourinary: No Headaches: Yes Hepatitis: No Hiatal Hernia: Yes Heparin Induced Thrombocytopen: No Hypertension: Yes (medicated) Immune Disorder: No Implanted Vascular Access Dvce: No Musculoskeletal: Yes Neurologic: Yes Psychiatric: No Reproductive: No Respiratory: Yes (COPD) Immunizations Current: No Migraines: Yes Myocardial Infarction: Yes (2004) Radiation Therapy: No Seizures: No Sleep Apnea: No Thyroid Disease: No Ulcer: Yes PNEUMOCCOCAL Vaccine (Year): 2 ?: Not Menopausal: Yes Past Surgical History Abdominal Surgery: No AICD: No Appendectomy: No Arteriovenous Shunt: No Body Medical Devices: CARDIAC AND FEMORAL STENTS Cardiac Surgery: Yes (STENT 2004) Cholecystectomy: No Coronary Artery Bypass Graft: Yes Coronary Stent: Yes Ear Surgery: No Endocrine Surgery: No Eye Surgery: No Genitourinary Surgery: No Gynecologic Surgery: Yes (hysterectomy ) Hysterectomy: Yes Insulin Pump: No Joint Replacement: No Neurologic Surgery: No Oral Surgery: No Pacemaker: No Thoracic Surgery: No Tonsillectomy: Yes Other Surgery: Yes (BILAT ILIAC PTCA/STENTS) Family History Family Myocardial Infarction: Yes Social History Alcohol Use: No Tobacco Use: Yes (<1/2 PPD) Substance Use: No Allergies-Medications (Allergen,Severity, Reaction): Coded Allergies: Sulfa (Sulfonamide Antibiotics) (Unverified Allergy, Severe, UNKNOWN; "ALMOST ", 11/16/17) A CHILD; PT STATE HER MOTHER TOLD HER SHE ALMOST AFTER RECEIVING SULFA DRUG acetaminophen (Unverified Adverse Reaction, Severe, Nausea/Vomiting, ) codeine (Unverified Adverse Reaction, Severe, Nausea/Vomiting, 11/16/17) oxycodone (Unverified Adverse Reaction, Severe, Nausea/Vomiting, 11/16/17) aspirin (Unverified Adverse Reaction, Intermediate, Ulcers, 11/16/17) GI BLEED Reported Meds & Prescriptions Reported Meds & Active Scripts Active Reported Dulcolax Stool Softener (Docusate Sodium) 100 Mg Cap 100 Mg PO BID Tramadol (Tramadol HCl) 50 Mg Tab 50 Mg PO Q8H PRN Lipitor (Atorvastatin Calcium) 80 Mg Tab 80 Mg PO HS Zantac (Ranitidine HCl) 150 Mg Tab 150 Mg PO BID Spiriva Handihaler (Tiotropium Inh) 18 Mcg Cap 18 Mcg INH DAILY 1 capsule = 18 mcg Plavix (Clopidogrel Bisulfate) 75 Mg Tab 75 Mg PO DAILY Nitrostat SL (Nitroglycerin) 0.4 Mg Subl 0.4 Mg SL DIRECTED PRN 1 tablet under the tongue as needed for chest pain. Repeat every 5 minutes for a total of 3 DOSES or call 911 if NO relief. Metoprolol Tartrate 25 Mg Tab 25 Mg PO BID Physical Exam Narrative GENERAL: The patient is alert, oriented 3 in slight apparent distress with her abdominal discomfort. The blood pressure is 186/79 but the rest of vital signs are normal. SKIN: Focused skin assessment warm/dry. HEAD: Atraumatic. Normocephalic. EYES: Pupils equal and round. No scleral icterus. No injection or drainage. ENT: No nasal bleeding or discharge. Mucous membranes pink but dry.. NECK: Trachea midline. No JVD. There is no meningismus present. CARDIOVASCULAR: Regular rate and rhythm. No murmur appreciated. RESPIRATORY: No accessory muscle use. Clear to auscultation. Breath sounds equal bilaterally. GASTROINTESTINAL: Abdomen soft, with minimal tenderness to direct palpation in the lower quadrants bilaterally and slightly in the upper quadrants., nondistended. Hepatic and splenic margins not palpable. No guarding or rebound is present. MUSCULOSKELETAL: No obvious deformities. No clubbing. No cyanosis. No edema. NEUROLOGICAL: Awake and alert. No obvious cranial nerve deficits. Motor grossly within normal limits. Normal speech. PSYCHIATRIC: Appropriate mood and affect; insight and judgment normal. RECTAL EXAM: No masses or tenderness, stool is brown Guaiac-negative. No fecal impaction is noted. Data Data Last Documented VS Vital Signs Date Time Temp Pulse Resp B/P (MAP) Pulse Ox O2 Delivery O2 Flow Rate FiO2 11/17/17 00:26 88 16 163/72 (102) 99 Room Air 11/16/17 20:44 97.6 Orders Orders Complete Blood Count With Diff (11/16/17 22:40) Basic Metabolic Panel (Bmp) (11/16/17 22:40) Urinalysis - C+S If Indicated (11/16/17 22:40) Sodium Chlor 0.9% 1000 Ml Inj (Ns 1000 M (11/16/17 22:45) Magnesium Citrate Liq (Citroma Liq) (11/16/17 23:30) Fleets Enema (Adult) (Fleets Enema (Adul (11/16/17 23:30) Labs Laboratory Tests Test 11/16/17 22:45 White Blood Count 9.9 TH/MM3 Red Blood Count 5.61 MIL/MM3 Hemoglobin 16.9 GM/DL Hematocrit 50.6 % Mean Corpuscular Volume 90.2 FL Mean Corpuscular Hemoglobin 30.1 PG Mean Corpuscular Hemoglobin Concent 33.4 % Red Cell Distribution Width 13.4 % Platelet Count 253 TH/MM3 Mean Platelet Volume 8.6 FL Neutrophils (%) (Auto) 50.5 % Lymphocytes (%) (Auto) 41.4 % Monocytes (%) (Auto) 5.8 % Eosinophils (%) (Auto) 1.5 % Basophils (%) (Auto) 0.8 % Neutrophils # (Auto) 5.1 TH/MM3 Lymphocytes # (Auto) 4.1 TH/MM3 Monocytes # (Auto) 0.6 TH/MM3 Eosinophils # (Auto) 0.1 TH/MM3 Basophils # (Auto) 0.1 TH/MM3 CBC Comment DIFF FINAL Differential Comment Urine Color YELLOW Urine Turbidity CLEAR Urine pH 6.0 Urine Specific [place] LESS/EQUAL 1.005 Urine Protein NEG mg/dL Urine Glucose (UA) NEG mg/dL Urine Ketones NEG mg/dL Urine Occult Blood NEG Urine Nitrite NEG Urine Bilirubin NEG Urine Urobilinogen 0.2 MG/DL Urine Leukocyte Esterase NEG Urine RBC 0-3 /hpf Urine WBC 0-2 /hpf Urine Squamous Epithelial Cells 0-5 /hpf Urine Bacteria NONE /hpf Microscopic Urinalysis Comment CULT NOT INDICATED Blood Urea Nitrogen 12 MG/DL Creatinine 0.96 MG/DL Random Glucose 101 MG/DL Calcium Level 9.3 MG/DL Sodium Level 139 MEQ/L Potassium Level 4.1 MEQ/L Chloride Level 105 MEQ/L Carbon Dioxide Level 29.0 MEQ/L Anion Gap 5 MEQ/L Estimat Glomerular Filtration Rate 57 ML/MIN MDM Medical Decision Making Medical Screen Exam Complete: Yes Emergency Medical Condition: Yes Medical Record Reviewed: Yes Interpretation(s) The CBC shows some hemoconcentration with a hemoglobin of 16.9 and hematocrit of 50.6. The basic metabolic profile shows a GFR of 57 but is otherwise unremarkable. The urine shows normal and cultures not indicated. Differential Diagnosis Dehydration, anemia, electrolyte disorder Narrative Course It is now 0130 and the patient feels better, has had a large bowel movement and wants to go home. Diagnosis Primary Impression: Constipation Additional Impression: Mild dehydration Additional Instructions: Make sure you stay well-hydrated. Take care of yourself and you can take care of others better. Disposition: 01 DISCHARGE HOME Condition: Stable Siddhartha Romero MD Nov 16, 2017 22:40
[2017-11-16] MEDS ORDERED: SODIUM CHLOR 0.9% 1000 ML INJ 1,000 ML IV SCH (22:45)
[2017-11-16 22:58] LABS: BILIRUBIN, URINE NEG (NEG); BLOOD, URINE NEG (NEG); GLUCOSE,URINE NEG (NEG); KETONE, URINE NEG (NEG); NITRITE,URINE NEG (NEG); URINE COLOR YELLOW (YELLW/STRAW); URINE LEUKOCYTE ESTERASE NEG (NEG)
[2017-11-16 22:59] LABS: AUTOMATED NEUTROPHIL # 5.1 TH/MM3 (1.8-7.7); BASOPHIL # 0.1 TH/MM3 (0-0.2); BASOPHIL % 0.8 % (0.0-2.0); EOSINOPHIL # 0.1 TH/MM3 (0-0.4); EOSINOPHIL % 1.5 % (0.0-4.0); HEMATOCRIT 50.6 % (35.0-46.0); HEMOGLOBIN 16.9 GM/DL (11.6-15.3); LYMPH % 41.4 % (9.0-44.0); LYMPHOCYTE # 4.1 TH/MM3 (1.0-4.8); MEAN CELL VOLUME 90.2 FL (80.0-100.0); MEAN CORPUSCULAR HEMOGLOBIN 30.1 PG (27.0-34.0); MEAN CORPUSCULAR HGB CONC 33.4 % (32.0-36.0); MEAN PLATELET VOLUME 8.6 FL (7.0-11.0); MONO % 5.8 % (0.0-8.0); MONOCYTE # 0.6 TH/MM3 (0-0.9); NEUT % 50.5 % (16.0-70.0); PLATELET COUNT 253 TH/MM3 (150-450); RED BLOOD COUNT 5.61 MIL/MM3 (4.00-5.30); RED CELL DISTRIBUTION WIDTH 13.4 % (11.6-17.2); WHITE BLOOD COUNT 9.9 TH/MM3 (4.0-11.0)
[2017-11-16 23:07] LABS: RBC, URINE 0-3 /hpf (0-3); SQUAMOUS EPITHELIAL CELL URINE 0-5 /hpf (0-5); WBC, URINE 0-2 /hpf (0-5)
[2017-11-16 23:10] LABS: CALCIUM 9.3 MG/DL (8.5-10.1)
[2017-11-16 23:14] LABS: CREATININE 0.96 MG/DL (0.50-1.00)
[2017-11-16] MEDS ORDERED: SOD PHOSPHATE/SOD BIPHOSPHATE (ADULT) ENEMA 133ML RECTAL ONE (23:30)
[2017-11-16] MEDS ORDERED: MAGNESIUM CITRATE SOLN 300 ML BTL PO ONE (23:30)
[2017-11-17 00:26] VITALS: BP 163/72; PULSE 88; RESP 16; O2SAT 99
[2017-11-17 01:56] VITALS: BP 111/71
== END 2017-11-17 01:58 | disposition home or self-care (01) ==
LOC: PHED 20:27 → PHEFT 11-17 01:58
DX: K59.00 Constipation, unspecified (principal); E86.0 Dehydration; M81.0 Age-related osteoporosis without current pathological fracture; E78.00 Pure hypercholesterolemia, unspecified; J44.9 Chronic obstructive pulmonary disease, unspecified; I25.2 Old myocardial infarction; I25.10 Atherosclerotic heart disease of native coronary artery without angina pectoris; I10 Essential (primary) hypertension; K21.9 Gastro-esophageal reflux disease without esophagitis; Z95.5 Presence of coronary angioplasty implant and graft; Z95.1 Presence of aortocoronary bypass graft
CPT/HCPCS: 80048; 81001; 85025; 96360; 99284; J7030